=== PATIENT | female | born 1945 | race Caucasian/White ===

== ENCOUNTER 2020-04-21 11:44 | Outpatient (RCR) | payer MEDICARE, OTHER, SELFPAY | END 2020-05-06 23:59 | disposition home or self-care (01) | LOC: SPT 11:44 | PROVIDERS: PCP Family Medicine; Referring Provider Podiatrist; Visit Provider Podiatrist | DX: Z47.89 Encounter for other orthopedic aftercare (principal) | CPT/HCPCS: 97035; 97140; 97161; 97530 ==

== ENCOUNTER 2020-05-07 06:00 | Outpatient (RCR) | payer MEDICARE, OTHER, SELFPAY | END 2020-06-05 23:59 | disposition home or self-care (01) | LOC: SPT 06:00 | PROVIDERS: PCP Family Medicine; Referring Provider Podiatrist; Visit Provider Podiatrist | DX: Z47.89 Encounter for other orthopedic aftercare (principal) | CPT/HCPCS: 97035; 97140 ==

== ENCOUNTER 2020-06-07 06:00 | Outpatient (RCR) | payer MEDICARE, OTHER, SELFPAY | END 2020-07-06 23:59 | disposition home or self-care (01) | LOC: SPT 06:00 | PROVIDERS: PCP Family Medicine; Referring Provider Podiatrist; Visit Provider Podiatrist | DX: Z47.89 Encounter for other orthopedic aftercare (principal) | CPT/HCPCS: 97110; 97140; 97162; 97164 ==

== ENCOUNTER 2020-06-07 06:00 | Outpatient (RCR) | payer MEDICARE, SELFPAY | END 2020-07-06 23:59 | disposition home or self-care (01) | LOC: SPT 06:00 | PROVIDERS: PCP Family Medicine; Referring Provider Podiatrist; Visit Provider Podiatrist | DX: Z47.89 Encounter for other orthopedic aftercare (principal) | CPT/HCPCS: 97162 ==

== ENCOUNTER → 2020-06-07 15:03 | Outpatient (BNVA) | payer MEDICARE, SELFPAY | PROVIDERS: PCP Family Medicine; Visit Provider Nurse Practitioner | DX: R23.3 Spontaneous ecchymoses (principal) | CPT/HCPCS: 85025 ==

== ENCOUNTER 2020-07-07 06:00 | Outpatient (RCR) | payer MEDICARE, SELFPAY | END 2020-08-06 23:59 | disposition home or self-care (01) | LOC: SPT 06:00 | PROVIDERS: PCP Family Medicine; Referring Provider Podiatrist; Visit Provider Podiatrist | DX: Z47.89 Encounter for other orthopedic aftercare (principal) | CPT/HCPCS: 97110; 97140 ==

== ENCOUNTER → 2022-05-15 13:06 | Outpatient (BNVA) | payer MEDICARE, SELFPAY | PROVIDERS: PCP Family Medicine; Visit Provider Podiatrist Foot & Ankle Surgery | DX: M77.41 Metatarsalgia, right foot (principal); M21.621 Bunionette of right foot; M20.41 Other hammer toe(s) (acquired), right foot | CPT/HCPCS: 73630; 99204 ==

== ENCOUNTER → 2022-12-03 14:22 | Outpatient (BNVA) | payer MEDICARE, SELFPAY | PROVIDERS: PCP Family Medicine; Visit Provider Family Medicine | DX: M25.50 Pain in unspecified joint (principal); M79.10 Myalgia, unspecified site; E03.9 Hypothyroidism, unspecified; M19.90 Unspecified osteoarthritis, unspecified site | CPT/HCPCS: 80053; 85025; 85651; 86140; 86160; 86162; 86235; 86255; 86376 ==

== ENCOUNTER → 2023-02-21 08:19 | Outpatient (BNVA) | payer MEDICARE, SELFPAY | PROVIDERS: PCP Family Medicine; Visit Provider Family Medicine | DX: M25.50 Pain in unspecified joint (principal); M79.10 Myalgia, unspecified site; R53.83 Other fatigue; R76.8 Other specified abnormal immunological findings in serum; R79.89 Other specified abnormal findings of blood chemistry | CPT/HCPCS: 80053; 82088; 82533; 82672; 84144 ==

== ENCOUNTER → 2023-03-21 08:38 | Outpatient (BNVA) | payer MEDICARE, SELFPAY | PROVIDERS: PCP Family Medicine; Visit Provider Family Medicine | DX: B37.9 Candidiasis, unspecified (principal) | CPT/HCPCS: 87070 ==

== ENCOUNTER → 2023-07-17 10:13 | Outpatient (BNVA) | payer MEDICARE, SELFPAY | PROVIDERS: PCP Family Medicine; Visit Provider Family Medicine | DX: F41.9 Anxiety disorder, unspecified (principal); R76.8 Other specified abnormal immunological findings in serum; M25.50 Pain in unspecified joint; R06.00 Dyspnea, unspecified; E03.9 Hypothyroidism, unspecified; M19.90 Unspecified osteoarthritis, unspecified site | CPT/HCPCS: 80053; 85007; 85025; 85651; 86140 ==

== ENCOUNTER 2023-08-25 06:00 | Outpatient (RCR) | payer MEDICARE, SELFPAY | END 2023-09-04 23:59 | disposition home or self-care (01) | LOC: GPT 06:00 | PROVIDERS: PCP Family Medicine; Visit Provider Family Medicine | DX: M75.100 Unspecified rotator cuff tear or rupture of unspecified shoulder, not specified as traumatic (principal) | CPT/HCPCS: 97110; 97140; 97161; 97530 ==

== ENCOUNTER 2023-09-05 06:00 | Outpatient (RCR) | payer MEDICARE, SELFPAY | END 2023-10-05 23:59 | disposition home or self-care (01) | LOC: GPT 06:00 | PROVIDERS: PCP Family Medicine; Visit Provider Family Medicine | DX: M75.100 Unspecified rotator cuff tear or rupture of unspecified shoulder, not specified as traumatic (principal) | CPT/HCPCS: 97110; 97112; 97140; 97530 ==

== ENCOUNTER 2023-10-06 06:00 | Outpatient (RCR) | payer MEDICARE, SELFPAY | END 2023-11-04 23:59 | disposition home or self-care (01) | LOC: GPT 06:00 | PROVIDERS: PCP Family Medicine; Visit Provider Family Medicine | DX: M75.100 Unspecified rotator cuff tear or rupture of unspecified shoulder, not specified as traumatic (principal) | CPT/HCPCS: 97110; 97530 ==

== ENCOUNTER 2024-02-02 06:00 | Outpatient (RCR) | payer MEDICARE, SELFPAY | END 2024-02-04 23:59 | disposition home or self-care (01) | LOC: APT 06:00 | PROVIDERS: Visit Provider Orthopaedic Surgery | DX: Z47.89 Encounter for other orthopedic aftercare (principal) | CPT/HCPCS: 97140; 97161; 97530 ==

== ENCOUNTER 2024-02-05 06:00 | Outpatient (RCR) | payer MEDICARE, SELFPAY | END 2024-03-06 23:59 | disposition home or self-care (01) | LOC: APT 06:00 | PROVIDERS: Visit Provider Orthopaedic Surgery | DX: Z98.890 Other specified postprocedural states (principal) | CPT/HCPCS: 97110; 97140; 97530 ==

== ENCOUNTER 2024-03-07 06:30 | Outpatient (RCR) | payer MEDICARE, SELFPAY | END 2024-04-05 23:59 | disposition home or self-care (01) | LOC: APT 06:30 | PROVIDERS: Visit Provider Orthopaedic Surgery | DX: Z98.890 Other specified postprocedural states (principal) | CPT/HCPCS: 97110; 97112; 97530 ==

== ENCOUNTER 2024-04-06 06:00 | Outpatient (RCR) | payer MEDICARE, SELFPAY | END 2024-05-06 23:59 | disposition home or self-care (01) | LOC: APT 06:00 | PROVIDERS: Visit Provider Orthopaedic Surgery | DX: Z98.890 Other specified postprocedural states (principal) | CPT/HCPCS: 97110; 97112; 97530 ==

== ENCOUNTER 2024-05-07 06:00 | Outpatient (RCR) | payer MEDICARE, SELFPAY | END 2024-06-05 23:59 | disposition home or self-care (01) | LOC: APT 06:00 | PROVIDERS: Visit Provider Orthopaedic Surgery | DX: Z98.890 Other specified postprocedural states (principal) | CPT/HCPCS: 97110; 97530 ==

== ENCOUNTER 2025-02-10 14:57 | Emergency (ER) | payer MEDICARE, SELFPAY ==
[2025-02-10 15:02] VITALS: BP 181/83; PULSE 92; RESP 16; TEMP 36.6; O2SAT 92; BMI 38.2
--- OUTSIDE RECORDS SUMMARY | 2025-02-10 15:04 | XMS_ITS | Clinical Summary ---
Author Organization [facility] Neil flores Troup Address [address] [place] [address] Phone Care Team Providers Care Machine Container Washer Name Role Phone Stephie Ga TRASH MAN Primary Care Provider Allergies Active Allergy Reactions Criticality Noted Date Comments Oxycodone Hcl Anaphylaxis High 04/10/2012 Medications lisinopril (PRINIVIL) 10 mg Oral tablet Take 10 mg by mouth daily. Active levothyroxine (LEVOTHYROXINE) 100 mcg Oral tablet Take 100 mcg by mouth daily retail consultant. Active loratadine (CLARITIN) 10 mg Oral tablet Take 10 mg by mouth daily. Active PSEUDOEPHEDRINE HCL (SUDAFED ORAL) Take by mouth. Active famotidine (PEPCID) 20 mg Oral tablet Take 20 mg by mouth 2 times daily. Active Magnesium 250 mg Oral Tab Take by mouth. Active diphenhydrAMINE (BENADRYL) 25 mg Oral capsule Take 25 mg by mouth every 6 hours as needed. 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 Gender Identity Not on file Sexual Orientation Not on file Occupation Industry Job Start Date Job End Date Not on file Not on file Not on file Not on file Last Filed Vital Signs Vital Sign Reading Time Taken Comments Blood Pressure 100/68 12/03/2012 2:31 PM CDT Pulse 106 12/03/2012 2:31 PM CDT Temperature - - Respiratory Rate - - Oxygen Saturation 94% 12/03/2012 2:31 PM CDT Inhaled Oxygen Concentration - - Weight 91.2 kg (201 lb) 12/03/2012 2:31 PM CDT Height 157.5 cm (5' 2 ) 12/03/2012 2:31 PM CDT Body Mass Index 36.76 12/03/2012 2:31 PM CDT Plan of Treatment Health Maintenance Due Date Last Done Comments DTAP/TDAP/TD VACCINES (1 - Tdap) 1964 PNEUMOCOCCAL VACCINE 50+ YEARS (1 of 1 - PCV) 03/31/19 94 ZOSTER VACCINE (1 of 2) 1994 OSTEOPOROSIS SCREENING 2009 RSV VACCINE (60+ or ) (1 - 1-dose 75+ series) 2019 INFLUENZA VACCINE (#1) 2025 Insurance [facility] MEDICARE PART A AND B Care Teams Machine Container Washer Relationship Specialty Start Date End Date Stephie Ga NP PCP - General NURSE PRACTITIONER 04/10/12
--- OUTSIDE RECORDS SUMMARY | 2025-02-10 15:04 | XMS_ITS | Clinical Summary ---
Author Organization [employer] [facility] Address [address] [place] [address] Attn: Epic Prelude ADT CREOLAYINKA CARTAGENA [id number] Care Team Providers Care Swatcher Name Role Phone Stephie Ga RN TESTING Primary Care Provider Allergies Active Allergy Reactions Criticality Noted Date Comments Oxycodone Hcl Anaphylaxis High 04/10/2012 Active Problems Problem Noted Date Diagnosed Date Lung nodule 04/19/2012 Allergic rhinitis 04/19/2012 Psoriatic arthritis 04/19/2012 Hypothyroidism 04/19/2012 HTN (hypertension) 04/19/2012 GERD (gastroesophageal reflux disease) 2 Social History Tobacco Use Types Packs/Day Years Used Date Smoking Tobacco: Never Smokeless Tobacco: Never Alcohol Use Standard Drinks/Week Comments Not Asked 0 (1 standard drink = 0.6 oz pur e alcohol) Comments Unknown Sex and Gender Information Value Date Recorded Sex Assigned at Not on file 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
--- OUTSIDE RECORDS SUMMARY | 2025-02-10 15:04 | XMS_ITS | Clinical Summary ---
Author Organization [facility] Address [address] [place] [address] Phone Care Team Providers Care Metal Framer Name Role Phone Unavailable Primary Care Provider Unavailabl e Allergies Active Allergy Reactions Criticality Noted Date Comments Oxycodone Anaphylaxis,Shortness Of Breath High 11/2011 Medications levothyroxine (SYNTHROID) 100 MCG tablet Take one tablet (100 mcg total) by mouth daily in the morning Active lisinopriL (PRINIVIL) 40 MG tablet Take one tablet (40 mg total) by mouth one (1) time a day Active PREDNISONE ORAL 10-15 mg daily Active furosemide (LASIX) 20 MG tablet Take one tablet (20 mg total) by mouth as needed Active famotidine (PEPCID ORAL) Take by mouth as needed Active omeprazole magnesium (PRILOSEC ORAL) Take by mouth as needed Active fluconazole (DIFLUCAN) 100 MG tablet Take by mouth as needed Active ZINC PICOLINATE ORAL Take 15 mg by mouth one (1) time a day Active MAGNESIUM ORAL Take 250 mg by mouth one (1) time a day Active Active Problems Problem Noted Date Diagnosed Date Hypothyroidism (acquired) 05/19/2024 Fibromyalgia 05/19/2024 IBS (irritable bowel syndrome) 05/19/2024 Benign essential hypertension 10/17/2016 Overview (05/19/2024): Location: None Severity: Moderate Progress: Stable Added By: Deirdre Bergeron Add to Current Problems: YES GERD (gastroesophageal reflux disease) 2 Family History Medical History Relation Name Comments Lung cancer Father Heart failure Mother Lupus Mother Relation Name Status Comments Father Mother Social History Tobacco Use Types Packs/Day Years Used Date Smoking Tobacco: Never Tobacco Cessation:Counseling Given: Not Answered Alcohol Use Standard Drinks/Week Comments Not Currently 0 (1 standard drink = 0.6 oz pur e alcohol) Comments Unknown Sex and Gender Information Value Date Recorded Sex Assigned at Not on file Legal Sex Female 10:47 AM CDT Gender Identity Not on file Sexual Orientation Not on file Last Filed Vital Signs Vital Sign Reading Time Taken Comments Blood Pressure 148/90 05/19/2024 2:45 PM HOSE MAKER Pulse 116 05/19/2024 2:45 PM HOSE MAKER Temperature - - Respiratory Rate - - Oxygen Saturation 97% 05/19/2024 2:45 PM HOSE MAKER Inhaled Oxygen Concentration - - Weight 99.8 kg (220 lb) 05/19/2024 2:45 PM HOSE MAKER Height 157.5 cm (5' 2 ) 05/19/2024 2:45 PM HOSE MAKER Body Mass Index 40.24 05/19/2024 2:45 PM HOSE MAKER Plan of Treatment Health Maintenance Due Date Last Done Comments Annual Depression Screening 1955 Pneumococcal Vaccine Age 50+ (1 of 1 - PCV) 1994 Bone Density 2009 RSV Immunization Pa tients or 60+ Years (1 - 1-dose 75+ series) 2019 Welcome to Medicare (IPPE) G0402 07/07/2023 Medicare Initial AWV [id number] 07/07/2024 Influenza Vaccine 03/07/2025 Insurance [employer] MEDICARE [id number] Member Subscriber Plan / Payer (Ef fective 2023-Present) Name:Shelli Raza Relation to Subscriber:Self Name:Shelli Raza Payer ID:[id number] (NAIC) Type:Not on file Address: [facility] [id number] [place] [id number]
--- NOTE | 2025-02-10 15:16 | ECG_ITS ---
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 Measurements Intervals [place] Rate: 91 P: 60 NE: 153 QRS: 38 QRSD: 81 T: 66 QT: 343 QTc: 424 Interpretive Statements SINUS RHYTHM MINIMAL ST DEPRESSION [0.025+ mV ST DEPRESSION] No previous ECG available for comparison Electronically Signed On 02-11-2025 13:50:24 CDT by Nicole Grant M.D. [email or web address] [id number]
--- NOTE | 2025-02-10 15:16 | CT_ITS ---
WS: [id number] CT HEAD NONCONTRAST HISTORY: Symptoms of acute stroke TECHNIQUE: Contiguous axial imaging performed through the brain. Bone and soft tissue windows. Sagittal and coronal reformats reviewed. All CT scans at [facility] use at least one of these dose optimization techniques: automated exposure control; mA and/or kV adjustment per patient size (includes targeted exams where dose is matched to clinical indication); or iterative reconstruction. DLP: 1083.82 mGy COMPARISON: None available. No acute intracranial hemorrhage, midline shift or mass effect. Mild atrophy and small vessel changes. No prior infarct. Ventricles: Normal size with no hydrocephalus. No inferior displacement of cerebellar tonsils. Tiny amount of calcium in the anterior cerebral arteries. Paranasal sinuses: As visualized are clear. Mastoid air cells: Well pneumatized. Calvarium and scalp: Skull is intact with no soft tissue edema or swelling. CT/CT head thrombolytic [id number] IMPRESSION: 1. No acute intracranial hemorrhage or edema. 2. Very mild cerebral atrophy and small vessel disease. Notified Vandana Cordero MD at 02/10/2025 3:36 PM.
[2025-02-10 15:29] LABS: Hematocrit 45.4 % (36-47); Hemoglobin 14.30 g/dL (11.27-16.99); Mean Corpuscular HGB Conc 31.5 g/dL (30-55); Mean Corpuscular Hemoglobin 28.0 pg (27-33); Mean Corpuscular Volume 88.8 fl (85-98); Nucleated Red Blood Cells % 0 %; Platelet Count 317 10^3/cmm (157-399); Red Blood Count 5.11 10^6/uL (3.85-5.65); White Blood Count 8.34 10^3/uL (3.29-11.43)
--- NOTE | 2025-02-10 15:29 | W.ED.NEUROSD ---
HPI - Neuro Symptoms/Deficit General: Chief Complaint: Neuro Symptoms/Deficit Stated Complaint: right side numbness Time Seen by Provider: 02/10/25 15:27 History of Present Illness: 79-year-old female with a history of hypertension, obesity, anxiety and hypothyroidism who presents to the emergency room with neurologic symptoms. She was at ophthalmology clinic and was about to receive some numbing injections in her eye for procedure and had been given some lidocaine jelly on her eye and shortly after she developed numbness in the right side of her face. She was also quite hypertensive and became quite anxious. Concerned she might be having a stroke so she was sent to the emergency room. Currently she says the numbness/tingling is improving. She has no facial droop. No slurred speech. No focal motor deficits. No altered mental status. No chest pain. No abdominal pain. She is a bit hypertensive on presentation with a blood pressure of 180/80. Related Data Home Medications ?Medication ?Instructions ?Recorded ?Confirmed levothyroxine 100 mcg capsule 100 mcg PO DAILY 02/02/20 10/14/23 Previous Rx's ?Medication ?Instructions ?Recorded tramadol 50 mg tablet (Ultram) 50 mg PO Q12H pain 30 days #60 tabs 05/15/22 azithromycin 250 mg tablet See Rx Instructions PO .COMPLEX #6 10/10/22 tabs benzonatate 200 mg capsule 200 mg PO TID PRN cough #90 caps 10/10/22 prednisone 20 mg tablet See Rx Instructions PO BID #15 tabs 12/03/22 fluconazole 100 mg tablet 100 mg PO DAILY #30 tabs 02/21/23 (Diflucan) prednisone 10 mg tablet See Rx Instructions .Route 06/16/23 .COMPLEX #30 tabs prednisone 20 mg tablet 20 mg PO DAILY inflammation #10 07/17/23 tabs prednisone 20 mg tablet 20 mg PO DAILY inflammation #30 07/23/23 tabs amlodipine 10 mg tablet 10 mg PO DAILY bp #90 tabs 08/05/23 duloxetine 30 mg capsule,delayed 30 mg PO DAILY pain #30 caps 09/29/23 release hydralazine 50 mg tablet See Rx Instructions PO TID HTN #90 10/14/23 tabs lisinopril 20 mg tablet 20 mg PO BID #180 tabs 08/10/24 aspirin 325 mg tablet 325 mg PO DAILY #30 tabs 02/10/25 Allergies Allergy/AdvReac Type Severity Reaction Status Date / Time oxycodone (From OxyContin) Allergy ALGY-Difficulty Verified 02/10/25 15:13 Breathing hydrochlorothiazide AdvReac rash Verified 02/10/25 15:13 Review of Systems Narrative: Constitutional symptoms: Negative except as documented in HPI. Skin symptoms: Negative except as documented in HPI. Eye symptoms: Negative except as documented in HPI. ENMT symptoms: Negative except as documented in HPI. Respiratory symptoms: Negative except as documented in HPI. Cardiovascular symptoms: Negative except as documented in HPI. Gastrointestinal symptoms: Negative except as documented in HPI. Genitourinary symptoms: Negative except as documented in HPI. Musculoskeletal symptoms: Negative except as documented in HPI. Neurologic symptoms: Negative except as documented in HPI. Psychiatric symptoms: Negative except as documented in HPI. Endocrine symptoms: Negative except as documented in HPI. PFS ED PFSH: Medical History (Updated 02/10/25 @ 16:21 by Vandana Cordero MD) Anxiety Essential hypertension Asthma Hypothyroidism Social History Smoking and tobacco/nicotine status: never used tobacco/nicotine Second hand smoke exposure: No Alcohol intake: never Substance/Drug Use: never Lives independently: Yes Household members: spouse Housing: House Marital status: Physical Exam Narrative: EXAM NARRATIVE: General: Alert, no acute distress. Skin: Warm, dry. Head: Normocephalic, atraumatic. Neck: Supple, trachea midline. Eye: Extraocular movements are intact. Ears, nose, mouth and throat: mucosa moist. Cardiovascular: Regular, Normal peripheral perfusion. Respiratory: Lungs are clear to auscultation, respirations are non-labored, breath sounds are equal, Symmetrical chest wall expansion. Gastrointestinal: Soft, Nontender, Non distended Musculoskeletal: Normal ROM, no deformity. Neurological: Alert and oriented, No focal neurological deficit observed. No facial droop. Smile is normal. Vision is normal. No slurred speech. Psychiatric: Cooperative, appropriate mood & affect. Course Vital Signs: Vital signs: Vital Signs Temperature 97.9 F 02/10/25 15:02 Pulse Rate 83 02/10/25 15:58 Respiratory Rate 20 H 02/10/25 15:58 Blood Pressure 154/92 02/10/25 15:58 Pulse Oximetry 90 02/10/25 15:58 Oxygen Delivery Me thod Room Air 02/10/25 15:02 MDM - Neuro Symptoms/Deficit Medical Decision Making Medical decision making: Differential diagnosis for patient with focal neurologic deficit(s) includes but not limited to and based on the above HPI, review of systems and physical exam: ischemic stroke, hemorrhagic stroke and embolic stroke secondary to atrial fibrillation), TIA, Wilkins's palsey, metabolic encephalopathy with previous stroke. Orders placed to evaluate differential diagnosis based on the above differential, HPI and physical exam NIH Stroke Scale/Score (NIHSS) from [employer] on 02/10/2025 * All calculations should be rechecked by clinician prior to use RESULT SUMMARY: 1 points NIH Stroke Scale INPUTS: 1A: Level of consciousness ?> 0 = Alert; keenly responsive 1B: Ask month and age ?> 0 = Both questions right 1C: 'Blink eyes' & 'squeeze hands' ?> 0 = Performs both tasks 2: Horizontal extraocular movements ?> 0 = Normal 3: Visual gutierrez ?> 0 = No visual loss 4: Facial palsy ?> 0 = Normal symmetry 5A: Left arm motor drift ?> 0 = No drift for 10 seconds 5B: Right arm motor drift ?> 0 = No drift for 10 seconds 6A: Left leg motor drift ?> 0 = No drift for 5 seconds 6B: Right leg motor drift ?> 0 = No drift for 5 seconds 7: Limb Ataxia ?> 0 = No ataxia 8: Sensation ?> 1 = Mild-moderate loss: less sharp/more dull 9: Language/aphasia ?> 0 = Normal; no aphasia 10: Dysarthria ?> 0 = Normal 11: Extinction/inattention ?> 0 = No abnormality Consultation: I spoke with Dr. Cota upon patient's arrival. He agrees this patient would not qualify for TNKase. Lab Review: Laboratory results were reviewed and interpreted by myself the emergency room physician. No leukocytosis. No anemia. No renal failure. Urinalysis is negative. I reviewed the patient's medical record. Reexamination: Patient remained stable. No increased work of breathing. No altered mental status. No focal motor deficits. Patient says numbness has almost completely resolved at this time. Blood pressures improved spontaneously. Consultation: I spoke with Dr. Brown and he still does not think that this was related to the lidocaine jelly. Perhaps she had a anxiety reaction. She was quite hypertensive and this is improved and she seems much calmer now and symptoms have improved as well. Assessment and plan: Paresthesia Hypertension ?I am going to have her take an aspirin daily and follow-up with her PCP MILY - Discharged home - Discussed plan with patient. Answered any questions. - Evaluation and treatment of this problem were appropriate in the emergency setting. Lab Data 02/10/25 15:21 02/10/25 15:[address] 02/10/25 15:16 IMPRESSION: 1. No acute intracranial hemorrhage or edema. 2. Very mild cerebral atrophy and small vessel disease. Notified Vandana Cordero MD at 02/10/2025 3:36 PM. Laboratory Results WBC 8.34 10^3/uL (3.29-11.43) 02/10/25 15:21 RBC 5.11 10^6/uL (3.85-5.65) 02/10/25 15:21 Hgb 14.30 g/dL (11.27-16.99) 02/10/25 15:21 Hct 45.4 % (36-47) 02/10/25 15:21 MCV 88.8 fl (85-98) 02/10/25 15:21 MCH 28.0 pg (27-33) 02/10/25 15:21 MCHC 31.5 g/dL (30-55) 02/10/25 15:21 RDW 14.4 % (12.1-15.1) 02/10/25 15:21 Plt Count 317 10^3/cmm (157-399) 02/10/25 15:21 MPV 9.7 fL (7.4-10.4) 02/10/25 15:21 Neut % (Auto) 83.0 % 02/10/25 15:21 Lymph % (Auto) 13.5 % 02/10/25 15:21 Webster % (Auto) 1.8 % 02/10/25 15:21 Eos % (Auto) 0.1 % 02/10/25 15:21 Baso % (Auto) 0.8 % 02/10/25 15:21 Neut # (Auto) 6.91 10^3/uL (1.8-7.7) 02/10/25 15:21 Lymph # (Auto) 1.1 10^3/uL (0.8-4.8) 02/10/25 15:21 Webster # (Auto) 0.2 10^3/uL (0.2-0.9) 02/10/25 15:21 Eos # (Auto) 0.0 10^3/uL (0.0-0.8) 02/10/25 15:21 Baso # (Auto) 0.1 10^3/uL (0.0-0.1) 02/10/25 15:21 Nucleated RBC % (auto) 0 % 02/10/25 15:21 Nucleated RBCs # 0.0 /100WBC 02/10/25 15:21 PT 12.20 SECONDS (12.1-14.9) 02/10/25 15:21 INR 0.84 (0.8-1.2) 02/10/25 15:21 APTT 26.6 SECONDS (23.9-36.7) 02/10/25 15:21 Sodium 140 mmol/L (136-145) 02/10/25 15:21 Potassium 4.6 mmol/L (3.5-5.1) 02/10/25 15:21 Chloride 103 mmol/L (98-107) 02/10/25 15:21 Carbon Dioxide 25 mmol/L (22-29) 02/10/25 15:21 Anion Gap 16.6 (5-19) 02/10/25 15:21 BUN 13 mg/dL (8-23) 02/10/25 15:21 Creatinine 0.9 mg/dL (0.5-0.9) 02/10/25 15:21 GFR Calculation Not Reportable 02/10/25 15:21 Glucose 111 mg/dL (65-115) 02/10/25 15:21 POC Glucose 107 mg/dL (70-110) 02/10/25 15:06 Calculated Osmolality 291 mOsm/kg (285-295) 02/10/25 15:21 Calcium 9.6 mg/dL (8.5-10.5) 02/10/25 15:21 Total Bilirubin 0.6 mg/dL (0.15-1.2) 02/10/25 15:21 AST 21 U/L (0-32) 02/10/25 15:21 ALT 23 U/L (0-33) 02/10/25 15:21 Alkaline Phosphatase 88 U/L (35-105) 02/10/25 15:21 Total Protein 7.4 g/dL (6.6-8.7) 02/10/25 15:21 Albumin 4.4 g/dL (3.5-5.2) 02/10/25 15:21 Globulin 3.0 g/dL (1.3-4.6) 02/10/25 15:21 Urine Color Yellow (Yellow) 02/10/25 15:50 Urine Appearance Cloudy (CLEAR) A 02/10/25 15:50 Urine pH 8.0 (5-7) A 02/10/25 15:50 Ur Specific Temple 1.016 (1.005-1.030) 02/10/25 15:50 Urine Protein Negative (Negative) 02/10/25 15:50 Urine Glucose (UA) Negative (Normal) 02/10/25 15:50 Urine Ketones Trace (Negative) 02/10/25 15:50 Urine Blood Negative (Negative) 02/10/25 15:50 Urine Nitrate Negative (Negative) 02/10/25 15:50 Urine Bilirubin Negative (Negative) 02/10/25 15:50 Urine Urobilinogen 1.0 mg/dL (Negative) 02/10/25 15:50 Ur Leukocyte Esterase Negative (Negative) 02/10/25 15:50 Urine RBC 0-2 /hpf (0-2) 02/10/25 15:50 Urine WBC 0-5 /hpf (0-5) 02/10/25 15:50 Ur Squamous Epith Cells 0-5 /hpf (0-5) 02/10/25 15:50 Amorphous Sediment Not Reportable 02/10/25 15:50 Urine Bacteria None seen /hpf (NONE) 02/10/25 15:50 Hyaline Casts 0-4 /lpf H 02/10/25 15:50 Urine Opiates Screen Negative ng/mL (Negative) 02/10/25 15:50 Ur Barbiturates Screen Negative ng/mL (Negative) 02/10/25 15:50 Ur Phencyclidine Scrn Negative ng/mL (Negative) 02/10/25 15:50 Ur Amphetamines Screen Negative ng/mL (Negative) 02/10/25 15:50 U Benzodiazepines Scrn Negative ng/mL (Negative) 02/10/25 15:50 Urine Cocaine Screen Negative ng/mL (Negative) 02/10/25 15:50 U Marijuana (THC) Screen Negative ng/mL (Negative) 02/10/25 15:50 All radiology interpretation(s) finalized by discharge Discharge Plan Discharge Patient Disposition: Home Clinical Impression: Paresthesia, Hypertension Condition: Stable Prescriptions: New aspirin 325 mg tablet 325 mg PO DAILY Qty: 30 0RF No Action levothyroxine 100 mcg capsule 100 mcg PO DAILY azithromycin 250 mg tablet See Rx Instructions PO .COMPLEX Qty: 6 0RF Rx Instructions: For 250 mg dose pack: take 500 mg today (day 1), then 250 mg for 4 days (days 2-5) PO benzonatate 200 mg capsule 200 mg PO TID PRN (Reason: cough) Qty: 90 2RF fluconazole [Diflucan] 100 mg tablet 100 mg PO DAILY Qty: 30 2RF Rx Instructions: take one tab po qday x 3 then prn prednisone 20 mg tablet 20 mg PO DAILY Qty: 10 0RF tramadol [Ultram] 50 mg tablet 50 mg PO Q12H 30 Days Qty: 60 0RF prednisone 20 mg tablet See Rx Instructions PO BID Qty: 15 0RF Rx Instructions: 2 po day x 5 days, then 1 po qday x 5 days. then stop. amlodipine 10 mg tablet 10 mg PO DAILY Qty: 90 1RF duloxetine 30 mg capsule,delayed release(DR/EC) 30 mg PO DAILY Qty: 30 1RF hydralazine 50 mg tablet See Rx Instructions PO TID Qty: 90 0RF Rx Instructions: 1 po bid prn for systolic >150 or diastolic >90 orally three times daily; prednisone 10 mg tablet See Rx Instructions .ROUTE .COMPLEX Qty: 30 1RF Dose Instruction: TAKE ONE TABLET BY MOUTH DAILY Rx Instructions: TAKE ONE TABLET BY MOUTH DAILY prednisone 20 mg tablet 20 mg PO DAILY Qty: 30 0RF lisinopril 20 mg tablet 20 mg PO BID Qty: 180 3RF Discharge Orders: Discharge ED (Routine); Ordered 02/10/25 Ordered By: Vandana Cordero Referrals: Sudhakar Toussaint MD [Primary Care Provider, Family Practice] Discharge Diet: Usual diet Discharge Activity: Increase activity as tolerated Patient Instructions: Paresthesia (ED), Hypertension (ED), Opioid Safety, Pain Management, Patient Portal & Mari Instructions Activity Restrictions/Additional Instructions: Please take a full-strength aspirin daily until you follow-up with your PCP. Have them look at what was done here and decide how to continue forward. [facility]. You have been screened and evaluated and felt safe for discharge. Health conditions do change or evolve sometimes and as such it is important that you follow up with your Primary Doctor to be re checked, 3-5 days is a general good time frame for follow up. You are always welcome to return to the ED for re assessment if your symptoms are worsening or you have new concerns Print Language: Italian Coding Level of Care Code ED Woods Superintendent for Jagdeep Bruce
[2025-02-10 15:43] VITALS: BP 164/92; PULSE 83; O2SAT 92
[2025-02-10 15:45] LABS: INR 0.84 (0.8-1.2); Prothrombin Time 12.20 SECONDS (12.1-14.9)
[2025-02-10 15:46] LABS: Partial Thromboplastin Time 26.6 SECONDS (23.9-36.7)
[2025-02-10 15:50] LABS: Alanine Aminotransferase 23 U/L (0-33); Albumin Level 4.4 g/dL (3.5-5.2); Alkaline Phosphatase 88 U/L (35-105); Aspartate Amino Transferase 21 U/L (0-32); Blood Urea Nitrogen 13 mg/dL (8-23); Calcium 9.6 mg/dL (8.5-10.5); Carbon Dioxide 25 mmol/L (22-29); Chloride 103 mmol/L (98-107); Creatinine Clr Calc Pharmacy 53.4744; Globulin 3.0 g/dL (1.3-4.6); Glucose 111 mg/dL (65-115); Osmolality Calculated 291 mOsm/kg (285-295); Sodium 140 mmol/L (136-145); Total Protein 7.4 g/dL (6.6-8.7)
[2025-02-10 15:58] VITALS: BP 154/92; PULSE 83; RESP 20; O2SAT 90
[2025-02-10 16:08] LABS: Glucose Urine UA Negative (Normal); Nitrate Urine Negative (Negative); Specific Gravity, Urine 1.016 (1.005-1.030)
[2025-02-10 16:09] LABS: Anion Gap 16.6 (5-19); Potassium 4.6 mmol/L (3.5-5.1)
[2025-02-10 16:13] LABS: Add Urine Microscopic? YES
[2025-02-10 16:18] LABS: PCP Screen Urine Negative (Negative)
[2025-02-10 16:56] VITALS: BP 154/75; PULSE 82; O2SAT 91
== END 2025-02-10 16:57 | disposition home or self-care (01) ==
PROVIDERS: Emergency Provider Emergency Medicine; PCP Family Medicine
DX: R20.2 Paresthesia of skin (principal); I10 Essential (primary) hypertension
CPT/HCPCS: 36415; 36416; 70450; 80053; 80306; 81001; 82962; 85025; 85610; 85730; 93005; 99284

== ENCOUNTER 2025-03-22 13:54 | Outpatient (CLI) | payer MEDICARE, SELFPAY ==
--- NOTE | 2025-03-22 13:59 | XR_ITS ---
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 FINDINGS: The L1-L4 bone mineral density measures 0.847 g/cm2. This corresponds to a T score score of -2.8 and Z score of -1.9. Left femoral neck bone mineral density measures 0.835 g/cm2. This corresponds to a T score of -1.4 and Z score of 0.0. Right femoral neck bone mineral density measures 0.823 g/cm2. This corresponds to a T score -1.5of and Z score of -0.1. Mean femoral neck bone mineral density measures 0.829 g/cm2. This corresponds to a T score of -1.4 and Z score of 0.0. XR/XR DEXA axial skeleton* [id number] IMPRESSION: Osteoporosis lumbar spine. Osteopenia femoral necks. Patient's FRAX calculated 10 year probability for major osteoporotic fracture i s 31.6% and osteoporotic hip fracture is 10.5%.
== END 2025-03-22 13:55 | disposition home or self-care (01) ==
LOC: RAD 13:54
PROVIDERS: PCP Family Medicine; Visit Provider Family Medicine
DX: M81.0 Age-related osteoporosis without current pathological fracture (principal); M85.88 Other specified disorders of bone density and structure, other site
CPT/HCPCS: 77080

== ENCOUNTER 2025-05-01 15:49 | Emergency (ER) | payer MEDICARE, SELFPAY ==
--- NOTE | 2025-05-01 15:52 | XRR_ITS ---
PROCEDURE INFORMATION: Exam: XR Chest Exam date and time: 05/01/2025 4:19 PM Age: 80 years old Clinical indication: Cough; Prior surgery; Surgery date: 6+ months; Surgery type: Left shoulder TECHNIQUE: Imaging protocol: Radiologic exam of the chest. Views: 1 view. COMPARISON: CR XR ribs LT mn 3V w CXR1V [id number] 03/25/2025 9:19 AM FINDINGS: Lungs: No consolidation. Pleural spaces: No pleural effusion. No pneumothorax. Heart/Mediastinum: No cardiomegaly. Calcified mediastinal lymph nodes. Bones/joints: No acute findings. XR/XR chest 1V portable [id number] IMPRESSION: No acute airspace disease.
[2025-05-01 15:55] VITALS: BP 173/95; PULSE 90; RESP 18; TEMP 36.9; O2SAT 94
--- OUTSIDE RECORDS SUMMARY | 2025-05-01 15:55 | XMS_ITS | Data Portability ---
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 Studies ordered as below. Discussed plan with patient, who expressed understanding. Follow up as noted below. [email or web address] Not available 05/11/2018 12:40:26 08/12/2023 08/12/2023 Diana Marques is a [age] year old female referred to evaluate Arthralgias, myalgias in the context of ANGELA positive by PCP Dr. Aubrey William ([facility]) Autoimmune Serologies: 12/03/2022 (referral record 04/11/2023) Centromere B negative [employer] negative ANGELA 1: 40, nuclear homogenous dsDNA crithidia negative C3 157 C4 35 Trejo negative SSA negative SCL 70 negative TPO negative Polly 1 negative SSB negative # ANGELA is technically negative for entry criteria for SLE (must be higher than 1:80); ANGELA 1:40 and full min negative MARK with normal complements combined with no features of systemic rheumatic process. 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 We discussed the concepts of allodynia and hyperalgesia. We discussed that this is not an autoimmune condition which would not respond to immunosuppression. Physical activity, sleep hygiene and lifestyle are the primary treatment for fibromyalgia #HTN episode; notably during URI sxs could have been taking cold medicine at the same time. patient would like this worked up feeling it could be a hormonal problem; reports adrenal incidentaloma. - Metanephrine and catecholamine screen as below; discussed low pre-test probability I spent a total of 60 minutes reviewing records, obtaining history, performing physical exam, face to face education with patient and documentation of visit today. Addendum Please let patient and PCP know that catecholamine and metanephrine screen (for her adrenal tumor) was normal. No features of RA (CCP negative) [email or web address] Not available 08/17/2023 19:39:38 Plan of Treatment Reminders Order Date Submit Date Provider Last Modified By Organization Details Last Modified Time Details Appointments None recorded. Lab CBC w/ diff 2023 024 [facility] ([facility]), [address] [place], [address], 4 09:05:20 CMP, serum or plasma 2023 024 [facility] (All Lab Orders), [address] [place], [address], 4 09:05:20 vitamin D, 25-hydroxy , total, serum 2023 024 [facility] (All Lab Orders), [address] [place], [address], 4 09:05:20 TSH, serum or plasma 2023 024 [facility] (All Lab Orders), [address] [place], [address], 4 09:05:21 thyroid peroxidase (tpo) Ab, serum 2023 024 [email or web address] [address] [place], [address], 4 09:05:21 thyroglobu leo Ab, serum [address] [facility] (All Lab Orders), [address] [place], [address], 4 09:05:21 rf (rheumatoi d factor), serum [address] [facility] (All Lab Orders), [address] [place], [address], 4 08:59:35 ccp (cyclic citrullina dasha peptide) igg, serum [address] [facility] (All Lab Orders), [address] [place], [address], 4 08:59:35 catecholam supa panel, QN, plasma [address] [facility] (All Lab Orders), [address] [place], [address], 4 08:59:34 catecholam supa, urine [address] [facility] (All Lab Orders), [address] [place], [address], 4 08:59:34 metanephri era, fractionat ed, free, plasma [address] [facility] (All Lab Orders), [address] [place], [address], 4 08:59:35 metanephri ne, fractionat ed, urine [address] [facility] (All Lab Orders), [address] [place], [address], 4 08:59:35 urinalysis , dipstick [address] [facility], [address] [place], [address], 8 08:54:34 CMP, serum or plasma 2017 [facility], [id number] [place] [address], [address], 8 09:53:04 CBC w/ auto diff 2017 jules [facility], [address] [place], [address], 8 15:59:28 TSH + free T4, serum 2017 [facility], [address] [place], [address], 09:53:11 T3, free, serum or plasma 2017 [facility], [address] [place], [address], 09:53:08 Referral None recorded. Procedures None recorded. Surgeries None recorded. Imaging None recorded. Medication Orders None recorded. Patient TargetsNo targets recorded. Patient Instructions Encounter Date Encounter Id Patient Instructions Last Modified By Organization Details Last Modified Time 05/11/2018 [id number] pulmonary function test* [email or web address] Not available 05/11/2018 15:59:28 Discssed going t o LR for a second opinion on her right foot and toe pain. Discussed her thyroid and redrawing her levels today [email or web address] Not available 05/11/2018 12:42:58 05/13/2018 [id number] RTC as needed. [email or web address] Not availab le 05/14/2018 09:08:06 Offered ENT referral, scheduling of a bronchoscopy, she has appt. with pulmonology. A psychiatric evaluation may be of benefit. She was upset that she was not being treated for a specific malady today, but I told her I found no abnormalities that needed treatment . I spent 30 minutes attempting to console patient. [email or web address] Not available 05/14/2018 09:08:53 08/12/2023 [id number] medical record request* [email or web address] Not available 08/27/2023 14:41:39 Reason for Referral None Reported. Results Created Date Observation Date Name Description Value Unit Range Abnormal Flag Note LastModifiedBy Organization Detail LastModifiedTime 05/12/20 18 05/12/2018 CMP, serum or plasm a glucose 90 mg/dL 65-99 normal Fasti ng refer ence inter [place] Not Available [facility] [place] [address] [address] [place], [address], 05/12/2018 09:53:04 05/12/20 18 05/12/2018 CMP, serum or plasm a urea nitrogen (BUN) 14 mg/dL 7-25 normal Not Available [facility] [place] [address] [place], [address], 05/12/2018 09:53:04 05/12/20 18 05/12/2018 CMP, serum or plasm a creatinine 0.75 mg/dL 0.60-0 .93 normal For patie nts >49 years of age, the refer ence limit for Creat inine is appro ximat adam 13% highe r for peopl e ident ified as Afric an-Am michael n. Not Available [facility] [place] [address] [address] [place], [address], 05/12/2018 09:53:04 05/12/20 18 05/12/2018 CMP, serum or plasm a eGFR non-afr. vietnamese 79 mL/mi n/1.7 3m2 > or = 60 normal Not Available [facility] [place] [address] [place], [address], 05/12/2018 09:53:04 05/12/20 18 05/12/2018 CMP, serum or plasm a eGFR 91 mL/mi n/1.7 3m2 > or = 60 normal Not Available [facility] [place] [address] [place], [address], 05/12/2018 09:53:04 05/12/20 18 05/12/2018 CMP, serum or plasm a BUN/creatini ne ratio NOT APPLIC ABLE (calc ) 6-22 Not Available [address], [address], 05/12/2018 09:53:04 05/12/20 18 05/12/2018 CMP, serum or plasm a sodium 141 mmol/ L 135-14 6 normal Not Available [address], [address], 05/12/2018 09:53:04 05/12/20 18 05/12/2018 CMP, serum or plasm a potassium 4.3 mmol/ L 3.5-5. 3 normal Not Available [address], [address], 05/12/2018 09:53:04 05/12/20 18 05/12/2018 CMP, serum or plasm a chloride 103 mmol/ L 98-110 normal Not Available [address], [address], 05/12/2018 09:53:04 05/12/20 18 05/12/2018 CMP, serum or plasm a carbon dioxide 25 mmol/ L 20-32 normal Not Available [address], [address], 05/12/2018 09:53:04 05/12/20 18 05/12/2018 CMP, serum or plasm a calcium 9.8 mg/dL 8.6-10 .4 normal Not Available [facility] [address], [address], 05/12/2018 09:53:04 05/12/20 18 05/12/2018 CMP, serum or plasm a protein, total 7.4 g/dL 6.1-8. 1 normal Not Available [facility] [address], [address], 05/12/2018 09:53:04 05/12/20 18 05/12/2018 CMP, serum or plasm a albumin 4.7 g/dL 3.6-5. 1 normal Not Available [address], [address], 05/12/2018 09:53:04 05/12/20 18 05/12/2018 CMP, serum or plasm a globulin 2.7 g/dL_ (calc ) 1.9-3. 7 normal Not Available [address], [address], 05/12/2018 09:53:04 05/12/20 18 05/12/2018 CMP, serum or plasm a albumin/glob ulin ratio 1.7 (calc ) 1.0-2. 5 normal Not Available [address], [address], 05/12/2018 09:53:04 05/12/20 18 05/12/2018 CMP, serum or plasm a bilirubin, total 0.7 mg/dL 0.2-1. 2 normal Not Available [address], [address], 05/12/2018 09:53:04 05/12/20 18 05/12/2018 CMP, serum or plasm a alkaline phosphatase 73 U/L 33-130 normal Not Available [facility] [employer] [address], [address], 05/12/2018 09:53:04 05/12/20 18 05/12/2018 CMP, serum or plasm a AST 21 U/L 10-35 normal Not Available [address], [address], 05/12/2018 09:53:04 05/12/20 18 05/12/2018 CMP, serum or plasm a ALT 24 U/L 6-29 normal Not Available [address], [address], 05/12/2018 09:53:04 05/12/20 18 05/12/2018 T3, free, serum or plasm a T3, free 3.1 pg/mL 2.3-4. 2 normal Not Available [facility] [address] [place], [place] [address], [place], [address], 05/12/2018 09:53:08 05/12/20 18 05/12/2018 TSH + free T4, serum TSH 1.45 mIU/L 0.40-4 .50 normal Not Available [address] [address] [place], [address], 05/12/2018 09:53:11 05/12/20 18 05/12/2018 TSH + free T4, serum T4, free 1.6 NG/dL 0.8-1. 8 normal NO COLLE CTION DATE RECEI ALMA. WE HAVE USED THE DATE THE SPECI MEN WAS RECEI ALMA BY THIS LABOR ATORY THE COLLE CTION DATE. IF THIS IS INCOR RECT, PLEAS E CONTA CT CLIEN T SERVI EMERY. PHONE NUMBE R: [phone] Not Available [address], [address], 05/12/2018 09:53:11 05/11/20 18 05/11/2018 CBC w/ auto diff blood leukocytes automated count (number/volu me) 5.9 10*3/ uL 4.5-[address] [facility] [address] [place], [address], 05/11/2018 14:21:52 05/11/20 18 05/11/2018 CBC w/ auto diff blood erythrocytes automated count (number/volu me) 4.75 10*6/ uL 4.2-5. [address] [facility] [address] [place], [address], 05/11/2018 14:21:52 05/11/20 18 05/11/2018 CBC w/ auto diff blood hemoglobin measurement (mass/volume ) 14.4 g/dL 12.0-[address] [facility] [address] [place], [address], 05/11/2018 14:21:52 05/11/20 18 05/11/2018 CBC w/ auto diff HCT vfr bld auto 41.8 % 36.0-[address] [facility] [address] [place], [address], 05/11/2018 14:21:52 05/11/20 18 05/11/2018 CBC w/ auto diff automated erythrocyte mean corpuscular volume 88.1 fL 80-100 Not Available [address], [address], 05/11/2018 14:21:52 05/11/20 18 05/11/2018 CBC w/ auto diff automated erythrocyte mean corpuscular hemoglobin (mass per erythrocyte) 30.3 pg 27-32 Not Available [address] [place], [address], 05/11/2018 14:21:52 05/11/20 18 05/11/2018 CBC w/ auto diff automated erythrocyte mean corpuscular hemoglobin concentratio n measurement (mass/vol 34.4 g/dL 31.0-3 7.0 Not Available [address], [address], 05/11/2018 14:21:52 05/11/20 18 05/11/2018 CBC w/ auto diff automated erythrocyte distribution width ratio 14.7 % 12-14. 5 high Not Available [address] [place], [address], 05/11/2018 14:21:52 05/11/20 18 05/11/2018 CBC w/ auto diff automated blood platelet count (count/volum e) 464 10*3/ uL 150-45 0 high Not Available [address], [address], 05/11/2018 14:21:52 05/11/20 18 05/11/2018 CBC w/ auto diff automated blood platelet mean volume 10.0 fL 7.4-10 .4 Not Available [address] [place], [address], 05/11/2018 14:21:52 05/11/20 18 05/11/2018 CBC w/ auto diff automated blood granulocytes /100 leukocytes 64.9 % 40-70 Not Available [address], [address], 05/11/2018 14:21:52 05/11/20 18 05/11/2018 CBC w/ auto diff blood lymphocytes/ 100 leukocytes by flow cytometry 27.6 % 20-44 Not Available [address], [address], 05/11/2018 14:21:52 05/11/20 18 05/11/2018 CBC w/ auto diff automated blood monocytes/10 0 leukocytes 7.5 % 2-9 Not Available [address] [place], [address], 05/11/2018 14:21:52 05/11/20 18 05/11/2018 CBC w/ auto diff granulocytes # bld auto 3.80 10*3/ uL 1.8-7. 7 Not Available [address], [address], 05/11/2018 14:21:52 05/11/20 18 05/11/2018 CBC w/ auto diff blood lymphocytes automated count (number/volu me) 1.60 10*3/ uL 0.9-4. 8 Not Available [address], [address], 05/11/2018 14:21:52 05/11/20 18 05/11/2018 CBC w/ auto diff blood monocytes automated count (number/volu me) 0.4 10*3/ uL 0-0.8 Not Available [address] [place], [address], 05/11/2018 14:21:52 05/11/20 18 05/11/2018 urina lysis , compl ete color of urine by auto YELLOW Not Available [address], [address], 05/11/2018 14:59:25 05/11/20 18 05/11/2018 urina lysis , compl ete urine clarity by refractometr y automated CLEAR Not Available [address], [address], 05/11/2018 14:59:25 05/11/20 18 05/11/2018 urina lysis , compl ete urine glucose detection NEGATI VE negati ve Not Available [address], [address], 05/11/2018 14:59:25 05/11/20 18 05/11/2018 urina lysis , compl ete urine bilirubin detection NEGATI VE negati ve Not Available [address], [address], 05/11/2018 14:59:25 05/11/20 18 05/11/2018 urina lysis , compl ete urine ketones detection by automated test strip NEGATI VE negati ve Not Available [address], [address], 05/11/2018 14:59:25 05/11/20 18 05/11/2018 urina lysis , compl ete specific gravity of urine by automated test strip 1.010 1.001- 1.030 Not Available [address], [address], 05/11/2018 14:59:25 05/11/20 18 05/11/2018 urina lysis , compl ete urine erythrocytes detection by automated method NEGATI VE negati ve Not Available [address], [address], 05/11/2018 14:59:25 05/11/20 18 05/11/2018 urina lysis , compl ete urine pH measurement by automated test strip 8.0 5.0-8. [address] [facility] [address] [place], [address], 05/11/2018 14:59:25 05/11/20 18 05/11/2018 urina lysis , compl ete urine protein detection Negati ve negati ve Not Available [facility] [address] [place], [address], 05/11/2018 14:59:25 05/11/20 18 05/11/2018 urina lysis , compl ete urine urobilinogen measurement by automated test strip (mass/volume ) NORMAL 0.2-1 mg/dL Not Available [address], [address], 05/11/2018 14:59:25 05/11/20 18 05/11/2018 urina lysis , compl ete urine nitrite detection NEGATI VE negati ve Not Available [facility] [address] [place], [address], 05/11/2018 14:59:25 05/11/20 18 05/11/2018 urina lysis , compl ete urine leukocyte esterase detection by automated test strip NEGATI VE negati ve Not Available [facility] [address] [place], [address], 05/11/2018 14:59:25 05/14/20 18 05/14/2018 pulmo nary funct ion test* pre fev1 Not Available [facility] [address], [address], 05/11/2018 12:47:17 05/14/20 18 05/14/2018 pulmo nary funct ion test* post fev1 Not Available [facility] [address], [address], 05/11/2018 12:47:17 05/14/20 18 05/14/2018 pulmo nary funct ion test* fev1 Not Available [facility] [address], [address], 05/11/2018 12:47:17 05/14/20 18 05/14/2018 pulmo nary funct ion test* pre fef Not Available [facility] [address], [address], 05/11/2018 12:47:17 05/14/20 18 05/14/2018 pulmo nary funct ion test* post fef Not Available [facility] [address], [address], 05/11/2018 12:47:17 05/14/20 18 05/14/2018 pulmo nary funct ion test* fef Not Available [facility] [address], [address], 05/11/2018 12:47:17 08/12/19 24 08/12/2023 CBC W AUTO DIFFE RENTI AL PANEL - BLOOD leukocytes [#/volume] in blood by automated count 9.7 10*3/ uL 4.5-11 .0 1054, 08/12 Not Available [facility] ([facility]) [address] [place], [address], 08/12/2023 11:54:37 08/12/19 24 08/12/2023 CBC W AUTO DIFFE RENTI AL PANEL - BLOOD erythrocytes [#/volume] in blood by automated count 5.06 10*6/ uL 4.2-5. 4 Not Available [facility] ([facility]) [address] [place], [address], 08/12/2023 11:54:37 08/12/19 24 08/12/2023 CBC W AUTO DIFFE RENTI AL PANEL - BLOOD hemoglobin [mass/volume ] in blood 14.6 g/dL 12.0-1 6.0 Not Available [facility] ([facility]) [facility] [place], [address], 08/12/2023 11:54:37 08/12/19 24 08/12/2023 CBC W AUTO DIFFE RENTI AL PANEL - BLOOD HCT vfr bld auto 46.8 % 36.0-4 8.0 Not Available [facility] ([facility]) [address] [place], [address], 08/12/2023 11:54:37 08/12/19 24 08/12/2023 CBC W AUTO DIFFE RENTI AL PANEL - BLOOD MCV [entitic volume] by automated count 92.5 fL 80-100 Not Available [facility] ([facility]) [facility] [place], [address], 08/12/2023 11:54:37 08/12/19 24 08/12/2023 CBC W AUTO DIFFE RENTI AL PANEL - BLOOD MCH [entitic mass] by automated count 28.9 pg 27-32 Not Available [facility] ([facility]) [facility] [place], [address], 08/12/2023 11:54:37 08/12/19 24 08/12/2023 CBC W AUTO DIFFE RENTI AL PANEL - BLOOD MCHC [mass/volume ] by automated count 31.2 g/dL 31.0-3 7.0 Not Available [facility] ([facility]) [address] [place], [address], 08/12/2023 11:54:37 08/12/19 24 08/12/2023 CBC W AUTO DIFFE RENTI AL PANEL - BLOOD erythrocyte distribution width [ratio] by automated count 14.0 % 12-14. 5 Not Available [facility] ([facility]) [address] [place], [address], 08/12/2023 11:54:37 08/12/19 24 08/12/2023 CBC W AUTO DIFFE RENTI AL PANEL - BLOOD platelets [#/volume] in blood by automated count 321 10*3/ uL 150-45 0 1054, 08/12 Not Available [facility] ([facility]) [address] [place] [address], [address], 08/12/2023 11:54:37 08/12/19 24 08/12/2023 CBC W AUTO DIFFE RENTI AL PANEL - BLOOD platelet mean volume [entitic volume] in blood by automated count 9.6 fL 9.1-13 .2 Not Available [facility] ([facility]) [address] [place] [address], [address], 08/12/2023 11:54:37 08/12/19 24 08/12/2023 CBC W AUTO DIFFE RENTI AL PANEL - BLOOD segmented neutrophils/ 100 leukocytes in blood by automated count 73.5 % 40-70 high Not Available [facility] ([facility]) [address] [place] [address], [address], 08/12/2023 11:54:37 08/12/19 24 08/12/2023 CBC W AUTO DIFFE RENTI AL PANEL - BLOOD lymphocytes/ 100 leukocytes in blood by flow cytometry (fc) 19.9 % 20-44 low Not Available [facility] ([facility]) [facility] [place], [address], 08/12/2023 11:54:37 08/12/19 24 08/12/2023 CBC W AUTO DIFFE RENTI AL PANEL - BLOOD monocytes/10 0 leukocytes in blood by automated count 5.1 % 2-9 Not Available [facility] ([facility]) [address] [place] [address], [address], 08/12/2023 11:54:37 08/12/19 24 08/12/2023 CBC W AUTO DIFFE RENTI AL PANEL - BLOOD eosinophils/ 100 leukocytes in blood by automated count 0.5 % 0-4 Not Available [facility] ([facility]) [address] [place] [address], [address], 08/12/2023 11:54:37 08/12/19 24 08/12/2023 CBC W AUTO DIFFE RENTI AL PANEL - BLOOD basophils/10 0 leukocytes in blood by automated count 0.6 % 0-1 Not Available [facility] ([facility]) [address] [place] [address], [address], 08/12/2023 11:54:37 08/12/19 24 08/12/2023 CBC W AUTO DIFFE RENTI AL PANEL - BLOOD neutrophils [#/volume] in blood by automated count 7.12 10*3/ uL 1.8-7. 7 Not Available [facility] ([facility]) [address] [place] [address], [address], 08/12/2023 11:54:37 08/12/19 24 08/12/2023 CBC W AUTO DIFFE RENTI AL PANEL - BLOOD lymphocytes [#/volume] in blood by automated count 1.93 10*3/ uL 0.9-4. 8 Not Available [facility] ([facility]) [address] [place] [address], [address], 08/12/2023 11:54:37 08/12/19 24 08/12/2023 CBC W AUTO DIFFE RENTI AL PANEL - BLOOD monocytes [#/volume] in blood by automated count 0.5 10*3/ uL 0-0.8 Not Available [facility] ([facility]) [address] [place] [address], [address], 08/12/2023 11:54:37 08/12/19 24 08/12/2023 CBC W AUTO DIFFE RENTI AL PANEL - BLOOD eosinophils [#/volume] in blood by automated count 0.05 10*3/ uL 0-0.7 Not Available [facility] ([facility]) [address] [place], [address], 08/12/2023 11:54:37 08/12/19 24 08/12/2023 CBC W AUTO DIFFE RENTI AL PANEL - BLOOD basophils [#/volume] in blood by automated count 0.06 10*3/ uL 0-0.2 Not Available [facility] ([facility]) [address] [place], [address], 08/12/2023 11:54:37 08/12/19 24 08/12/2023 CBC W AUTO DIFFE RENTI AL PANEL - BLOOD immature granulocytes [presence] in blood by automated count 0.4 % 0-0.7 Not Available [facility] ([facility]) [address] [place], [address], 08/12/2023 11:54:37 08/12/19 24 08/12/2023 CBC W AUTO DIFFE RENTI AL PANEL - BLOOD immature granulocytes [#/volume] in blood 0.04 10*3/ uL 0.00-0 .06 Not Available [facility] ([facility]) [facility] [place], [address], 08/12/2023 11:54:37 08/12/19 24 08/12/2023 CBC W AUTO DIFFE RENTI AL PANEL - BLOOD nucleated erythrocytes /100 leukocytes [ratio] in blood by automated count 0.0 % 0-0 Not Available [facility] ([facility]) [address] [place], [address], 08/12/2023 11:54:37 08/12/19 24 08/12/2023 VITAM IN D+MET ABOLI DESHAWN [MASS /VOLU ME] IN SERUM OR PLASM A vitamin D+metabolite s [mass/volume ] in serum or plasma 33.9 NG/mL 30-100 VITAM IN D RANGE S Defic ient: <20 ng/mL Insuf ficie nt: 20-<3 0 ng/mL Suffi cient : 30-10 0 ng/mL Toxic ity: >100 ng/mL Not Available [facility] ([facility]) [address] [place] [address], [address], 08/12/2023 12:31:19 08/12/19 24 08/12/2023 THYRO XINE (T4) FREE [MASS /VOLU ME] IN SERUM OR PLASM A thyroxine (T4) free [mass/volume ] in serum or plasma 1.40 NG/dL 0.78-2 .19 Not Available [facility] ([facility]) [address] [place] [address], [address], 08/12/2023 12:35:25 08/12/19 24 08/12/2023 COMPR EHENS WES METAB OLIC 2000 PANEL - SERUM OR PLASM A glucose [mass/volume ] in serum or plasma 93 mg/dL 74-106 Not Available [facility] ([facility]) [address] [place] [address], [address], 08/12/2023 13:05:32 08/12/19 24 08/12/2023 COMPR EHENS WES METAB OLIC 2000 PANEL - SERUM OR PLASM A urea nitrogen [mass/volume ] in serum or plasma 23 mg/dL 7-17 high Not Available [facility] ([facility]) [facility] [place], [address], 08/12/2023 13:05:32 08/12/19 24 08/12/2023 COMPR EHENS WES METAB OLIC 2000 PANEL - SERUM OR PLASM A creatinine [mass/volume ] in serum or plasma 0.8 mg/dL 0.7-1. 2 Not Available [facility] ([facility]) [address] [place] [address], [address], 08/12/2023 13:05:32 08/12/19 24 08/12/2023 COMPR EHENS WES METAB OLIC 1999 PANEL - SERUM OR PLASM A sodium [moles/volum e] in serum or plasma 139 mmol/ L 137-14 5 Not Available [facility] ([facility]) [address] [place], [address], 08/12/2023 13:05:32 08/12/19 24 08/12/2023 COMPR EHENS WES METAB OLIC 2000 PANEL - SERUM OR PLASM A potassium [moles/volum e] in serum or plasma 3.9 mmol/ L 3.5-5. 1 Not Available [facility] ([facility]) [address] [place], [address], 08/12/2023 13:05:32 08/12/19 24 08/12/2023 COMPR EHENS WES METAB OLIC 2000 PANEL - SERUM OR PLASM A chloride [moles/volum e] in serum or plasma 105 mmol/ L 98-107 Not Available [facility] ([facility]) [address] [place], [address], 08/12/2023 13:05:32 08/12/19 24 08/12/2023 COMPR EHENS WES METAB OLIC 2000 PANEL - SERUM OR PLASM A carbon dioxide, total [moles/volum e] in serum or plasma 26 mmol/ L 22-30 Not Available [facility] ([facility]) [address] [place], [address], 08/12/2023 13:05:32 08/12/19 24 08/12/2023 COMPR EHENS WES METAB OLIC 2000 PANEL - SERUM OR PLASM A calcium [mass/volume ] in blood 9.5 mg/dL 8.4-10 .2 Not Available [facility] ([facility]) [address] [place], [address], 08/12/2023 13:05:32 08/12/19 24 08/12/2023 COMPR EHENS WES METAB OLIC 2000 PANEL - SERUM OR PLASM A anion gap in serum or plasma 8 mEq/L 4-12 Not Available [facility] ([facility]) [address] [place], [address], 08/12/2023 13:05:32 08/12/19 24 08/12/2023 COMPR EHENS WES METAB OLIC 2000 PANEL - SERUM OR PLASM A urea nitrogen/cre atinine [mass ratio] in blood 28.7 % 12.0-2 0.0 high Not Available [facility] ([facility]) [address] [place], [address], 08/12/2023 13:05:32 08/12/19 24 08/12/2023 COMPR EHENS WES METAB OLIC 2000 PANEL - SERUM OR PLASM A osmolality of serum or plasma by calculation 281 mOsm/ kg 261-28 0 high Not Available [facility] ([facility]) [address] [place], [address], 08/12/2023 13:05:32 08/12/19 24 08/12/2023 COMPR EHENS WES METAB OLIC 2000 PANEL - SERUM OR PLASM A glomerular filtration rate/1.73 sq M.predicted [volume rate/area] in serum, plasma or blood by creatinine-b ased formula (CKD-epi) 75 mL 90-120 >=90 Chelsea l 60-89 Mildl y Decre ased 45-59 Mildl y to Moder ately Decre ased 30-44 Moder ately to Sever adam Decre ased 15-29 Sever adam Decre ased <15 Kidne y Failu re Not Available [facility] ([facility]) [address] [place], [address], 08/12/2023 13:05:32 08/12/19 24 08/12/2023 COMPR EHENS WES METAB OLIC 2000 PANEL - SERUM OR PLASM A bilirubin.to miguel [mass/volume ] in serum or plasma 1.00 mg/dL 0.2-1. 3 Not Available [facility] ([facility]) [address] [place], [address], 08/12/2023 13:05:32 08/12/19 24 08/12/2023 COMPR EHENS WES METAB OLIC 2000 PANEL - SERUM OR PLASM A aspartate aminotransfe rase [enzymatic activity/vol ume] in serum or plasma 32 U/L 14-36 Not Available [facility] ([facility]) [address] [place], [address], 08/12/2023 13:05:32 08/12/19 24 08/12/2023 COMPR EHENS WES METAB OLIC 2000 PANEL - SERUM OR PLASM A alanine aminotransfe rase [enzymatic activity/vol ume] in serum or plasma 45 U/L 0-34 high Not Available [facility] ([facility]) [address] [place], [address], 08/12/2023 13:05:32 08/12/19 24 08/12/2023 COMPR EHENS WES METAB OLIC 2000 PANEL - SERUM OR PLASM A alkaline phosphatase [enzymatic activity/vol ume] in serum or plasma 60 U/L 38-126 Not Available [facility] ([facility]) [facility] [place], [address], 08/12/2023 13:05:32 08/12/19 24 08/12/2023 COMPR EHENS WES METAB OLIC 2000 PANEL - SERUM OR PLASM A protein [mass/volume ] in serum or plasma 7.3 g/dL 6.3-8. 2 Not Available [facility] ([facility]) [address] [place], [address], 08/12/2023 13:05:32 08/12/19 24 08/12/2023 COMPR EHENS WES METAB OLIC 2000 PANEL - SERUM OR PLASM A albumin [mass/volume ] in serum or plasma 4.3 g/dL 3.5-5. 0 Not Available [facility] ([facility]) [address] [place], [address], 08/12/2023 13:05:32 08/12/19 24 08/12/2023 COMPR EHENS WES METAB OLIC 1999 PANEL - SERUM OR PLASM A globulin [mass/volume ] in plasma 3.0 g/dL 2.2-4. 2 Not Available [facility] ([facility]) [address] [place], [address], 08/12/2023 13:05:32 08/12/19 24 08/12/2023 COMPR EHENS WES METAB OLIC 2000 PANEL - SERUM OR PLASM A albumin/glob ulin [mass ratio] in serum or plasma 1.40 % 1.10-2 .20 Not Available [facility] ([facility]) [facility] [place], [address], 08/12/2023 13:05:32 08/12/19 24 08/12/2023 THYRO TROPI N [UNIT S/VOL UME] IN SERUM OR PLASM A thyrotropin [units/volum e] in serum or plasma 1.47 u[IU] /mL 0.465- 4.68 Not Available [facility] ([facility]) [facility] [place], [address], 08/12/2023 13:05:33 08/12/19 24 08/12/2023 RHEUM ATOID FACTO R [UNIT S/VOL UME] IN SERUM OR PLASM A rheumatoid factor [units/volum e] in serum or plasma < 8.6 8.6-11 .9 low Not Available [facility] ([facility]) [facility] [place], [address], 08/12/2023 13:05:33 08/12/19 24 08/12/2023 THYRO PEROX IDASE AB [UNIT S/VOL UME] IN SERUM OR PLASM A BY IMMUN OASSA Y thyroperoxid ase Ab [units/volum e] in serum or plasma by immunoassay 2 [IU]/ mL <9 THIS TEST WAS PERFO RMED AT: [facility] [address] [place], [place] Luh Hartley M.D., Ph.D. ,Dire ctor of Labor atori es Not Available [facility] ([facility]) [address] [place] [address], [address], 08/14/2023 07:45:24 08/12/19 24 08/12/2023 THYRO GLOBU LEO AB [UNIT S/VOL UME] IN SERUM OR PLASM A thyroglobuli n Ab [units/volum e] in serum or plasma 3 [IU]/ mL <=1 high THIS TEST WAS PERFO RMED AT: [facility] [address] [place], [place] Luh Hartley M.D., Ph.D. ,Dire ctor of Labor atori es Not Available [facility] ([facility]) [facility] [place], [address], 08/14/2023 07:45:25 08/12/19 24 08/12/2023 CYCLI C CITRU LLINA DASHA PEPTI DE IGG AB [UNIT S/VOL UME] IN SERUM OR PLASM A cyclic citrullinate d peptide IgG Ab [units/volum e] in serum or plasma <16 <20 Negat wes: <20 Weak Posit wes: 20 - 39 Moder ate Posit wes: 40 - 59 Stron g Posit wes: >59 THIS TEST WAS PERFO RMED AT: [facility] [address] [place], [place] Luh Hartley M.D., Ph.D. ,Dire ctor of Labor atori es Not Available [facility] ([facility]) [facility] [place], [address], 08/15/2023 07:03:51 08/12/19 24 08/12/2023 CATEC HOL UR-MC NC epinephrine [mass/volume ] in urine 6 mg/g{ cre} 2-16 This test was devel oped and its luke tical perfo rmanc e ilene cteri stics have been deter mined by [facility] [place], [place]. It has not been clear ed or appro alma by the U.S. Food and Drug Admin istra tion. This assay has been valid ated pursu ant to the CLIA regul ation s and is used for clini mandy purpo ses. Not Available [facility] ([facility]) [address] [place], [address], 08/15/2023 11:43:17 08/12/19 24 08/12/2023 CATEC HOL UR- NC norepinephri ne [mass/volume ] in urine 56 mg/g{ cre} 7-65 This test was devel oped and its luke tical perfo rmanc e ilene cteri stics have been deter mined by [facility] [employer] [place], [place]. It has not been clear ed or appro alma by the U.S. Food and Drug Admin istra tion. This assay has been valid ated pursu ant to the CLIA regul ation s and is used for clini mandy purpo ses. Not Available [facility] ([facility]) [address] [place], [address], 08/15/2023 11:43:17 08/12/19 24 08/12/2023 CATEC HOL UR- NC epinephrine+ norepinephri ne/creatinin e [mass ratio] in urine 62 mg/g{ cre} 9-74 This test was devel oped and its luke tical perfo rmanc e ilene cteri stics have been deter mined by [facility] [place], [place]. It has not been clear ed or appro alma by the U.S. Food and Drug Admin istra tion. This assay has been valid ated pursu ant to the CLIA regul ation s and is used for clini mandy purpo ses. Not Available [facility] ([facility]) [address] [place], [address], 08/15/2023 11:43:17 08/12/19 24 08/12/2023 CATEC HOL UR-MC NC dopamine [mass/volume ] in urine 296 mg/g{ cre} 40-390 This test was devel oped and its luke tical perfo rmanc e ilene cteri stics have been deter mined by [facility] [place] [employer], [place]. It has not been clear ed or appro alma by the U.S. Food and Drug Admin istra tion. This assay has been valid ated pursu ant to the CLIA regul ation s and is used for clini mandy purpo ses. Not Available [facility] ([facility]) [address] [place], [address], 08/15/2023 11:43:17 08/12/19 24 08/12/2023 CATEC HOL UR-MC NC creatinine [mass/volume ] in urine 96 mg/dL 20-275 THIS TEST WAS PERFO RMED AT: [facility] [address] [facility] [place], [place] Luh Hartley M.D., Ph.D. ,Dire ctor of Labor atori es Not Available [facility] ([facility]) [address] [place], [address], 08/15/2023 11:43:17 08/12/19 24 08/12/2023 METAN EPHRI ERA [MASS /VOLU ME] IN SERUM OR PLASM A metanephrine s [mass/volume ] in serum or plasma <25 pg/mL <=57 This test was devel oped and its luke tical perfo rmanc e ilene cteri stics have been deter mined by [facility] [place]. It has not been clear ed or appro alma by the U.S. Food and Drug Admin istra tion. This assay has been valid ated pursu ant to the CLIA regul ation s and is used for clini mandy purpo ses. Not Available [facility] ([facility]) [address] [place], [address], 08/18/2023 07:09:46 08/12/19 24 08/12/2023 METAN EPHRI ERA [MASS /VOLU ME] IN SERUM OR PLASM A normetanephr ine [mass/volume ] in serum or plasma 181 pg/mL <=148 high This test was devel oped and its luke tical perfo rmanc e ilene cteri stics have been deter mined by [facility] [place]. It has not been clear ed or appro alma by the U.S. Food and Drug Admin istra tion. This assay has been valid ated pursu ant to the CLIA regul ation s and is used for clini mandy purpo ses. Not Available [facility] ([facility]) [address] [place], [address], 08/18/2023 07:09:46 08/12/19 24 08/12/2023 METAN EPHRI ERA [MASS /VOLU ME] IN SERUM OR PLASM A metanephrine and normetanephr ine panel [mass/volume ] - serum or plasma 181 pg/mL <=205 For addit ional infor dexter casas e refer to http: //kiran nguyen.que stdia gnost ics.c om/fa q/Met Fract Free (This link is being provi ded for infor matio nal/e ducat io infor matio nal/e ducat ional purpo ses only. ) [place] tions >4-fo ld upper refer ence range : stron gly sugge stive of a pheoc hromo cytom a(1). [place] tions >1- 4-fol d upper refer ence range : signi fican t but not diagn ostic , may be due to medic ation s or stres s. Sugge st runni ng 24 hr urine fract ionat ed metan ephri era and/o r serum Chrom agran in A for confi rmati on. Refer ence: (1)Al gecir as-Sc himni ch A et al, Plasm a Chrom ogran in A or Urine Fract ionat ed Metan ephri era Follo w-Up Testi ng Impro ves the Diagn ostic Accur acy of Plasm a Fract ionat ed Metan ephri era for Pheoc hromo cytom a. The Journ al of Clini mandy Endoc rinol ogy # Metab olism 93(1) , 91-95 , 2007. This test was devel oped and its luke tical perfo rmanc e ilene cteri stics have been deter mined by [facility] [place]. It has not been clear ed or appro alma by the U.S. Food and Drug Admin istra tion. This assay has been valid ated pursu ant to the CLIA regul ation s and is used for clini mandy purpo ses. THIS TEST WAS PERFO RMED AT: [facility] [address] [facility] [place], [place] Luh Hartley M.D., Ph.D. ,Dire ctor of Labor atori es Not Available [facility] ([facility]) [address] [facility], [place], [address], 08/18/2023 07:09:46 08/12/19 24 08/12/2023 METAN EPHRI ERA [MASS /VOLU ME] IN URINE metanephrine s [mass/volume ] in urine 69 mg/g{ cre} 21-153 This test was devel oped and its luke tical perfo rmanc e ilene cteri stics have been deter mined by [facility] [place], [place]. It has not been clear ed or appro alma by the U.S. Food and Drug Admin istra tion. This assay has been valid ated pursu ant to the CLIA regul ation s and is used for clini mandy purpo ses. Not Available [facility] ([facility]) [address] [place], [address], 08/18/2023 07:11:52 08/12/19 24 08/12/2023 METAN EPHRI ERA [MASS /VOLU ME] IN URINE normetanephr ine [mass/volume ] in urine 339 mg/g{ cre} 108-52 4 This test was devel oped and its luke tical perfo rmanc e ilene cteri stics have been deter mined by [facility] [place]. It has not been clear ed or appro alma by the U.S. Food and Drug Admin istra tion. This assay has been valid ated pursu ant to the CLIA regul ation s and is used for clini mandy purpo ses. Not Available [facility] ([facility]) [address] [place], [address], 08/18/2023 07:11:52 08/12/19 24 08/12/2023 METAN EPHRI ERA [MASS /VOLU ME] IN URINE metanephrine s [mass/volume ] in urine 408 mg/g{ cre} 149-60 3 A four fold eleva tion of urina ry norme tanep hrine s is extre nicole likel y to be due to a tumor , while a four fold eleva tion of urina ry metan ephri era is highl y sugge stive , but not diagn ostic of the tumor . Measu remen t of plasm a Metan ephri era and Chrom ogran in A is recom giovanni d for confi rmati on. Not Available [facility] ([facility]) [address] [place], [address], 08/18/2023 07:11:52 08/12/19 24 08/12/2023 METAN EPHRI ERA [MASS /VOLU ME] IN URINE creatinine [mass/volume ] in urine 96 mg/dL 20-275 THIS TEST WAS PERFO RMED AT: [facility] [address] [place], [place] Luh Hartley M.D., Ph.D. ,Dire ctor of Labor atori es Not Available [facility] ([facility]) [address] [facility], [place], [address], 08/18/2023 07:11:52 08/12/19 24 08/12/2023 CATEC HOLAM SUPA 3 PNL PLAS- [facility] catecholamin es [mass/volume ] in plasma see below high ----- ----- ----T ESTS- ----- ----- --RES ULTS- ----- --UNI TS--R EF. RANGE --- Epine phrin e 15 pg/mL Refer ence Range : SUPIN E: <58 UPRIG HT: <82 Norep ineph rine 682 pg/mL Refer ence Range : SUPIN E: 149-5 64 UPRIG HT: 199-9 37 Dopam ine 33 H pg/mL Refer ence Range : SUPIN E: <16 UPRIG HT: <27 Total Catec holam supa 730 pg/mL Refer ence Range : SUPIN E: <632 UPRIG HT: <1046 Due to stres s, plasm a catec holam ine level s are gener ally unrel iable in infan ts and small child adam. Urina ry catec holam ine assay s are more relia ble. This test was devel oped and its luke tical perfo rmanc e ilene cteri stics have been deter mined by [facility]. It has not been clear ed or appro alma by FDA. This assay has been valid ated pursu ant to the CLIA regul ation s and is used for clini mandy purpo ses. Test perfo rmed by [facility] [address] [facility], [place] [address] Phone : [phone] Medic al Direc tor: Edith escalante MD,PH D,YECENIA THIS TEST WAS PERFO RMED AT: [facility] [address] [place] [address] Edith escalante MD,PH D,YECENIA Not Available [facility] ([facility]) [address] [facility], [place], [address], 09/01/2023 07:27:22 07/29/19 19 07/28/2018 digit al mammo scree magnolia ravin [facility] [address] [place] [address] Radiol ogy Report Patijitendra t: SHELLI MORGAN dasha: [phone] MR #: [id number] /AG E/SEX: 03/31/ 4 / 73 / F Room/B ed: Locati on: [place] [facility] Access ion: [id number] Exam: Digita l Mammo Screen ing Ravin Reason : SCREEN ING Orderi ng Provid er: Anna Roberson MD, FACP Attend ing Provid er: Anna Roberson MD, FACP CC: Freeman minor MD, Robinson; Warden MENARD, Ta Romero. Report Number :[id number] #[id number] [id number] [facility] - DIGITA L MAMMO SCREEN ING RAVIN BILATE RAL DIGITA L SCREEN ING MAMMOG MARIBELL WITH CAD: 019 Compar lizzy is made to exams dated: 03/13/20 16 mammog maribell, 2016 mammog maribell, and 015 mammog maribell - [facility] . Curren t study contai ns 6 films. There are scatte red fibrog landul ar elemen ts in both breast s that could obscur e a lesion on mammog you. Curren t study was also evalua dasha with a Comput er Aided Detect ion (CAD) system . There is a benign calcif icatio n left breast . No signif icant masses , calcif icatio ns, or other findin gs are seen in either breast . There has been no signif icant interv al change . IMPRES NEMO: There is no mammog raphic eviden ce of malign mariusz. A 1 year screen ing mammog maribell is recomm ended. Patien t inform ation entere d into a remind er system with a target due date for the next mammog maribell Ta Leyva M.D. mw/rodo rad: 9 14:17: 20 Imagin g Techno logist (s): Sissy Kiser, BSRT(R )(M), [facility] letter sent: Normal /Negat wes Mammog maribell BI-RAD S: 2 Benign End of Report Dictat ed by: Warden MENARD, Ta Frankel 1401 Transc riptio nist: Ta Leyva MD 1417 Signed by: Ta Evans MD 1417 [email or web address] [facility] [address] [place], [address], 07/30/2018 09:51:25 Result Notes None recorded. 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 201305/11/2018 ICD10 Descript ion: Other iodine-d eficienc y related thyroid disorder s and allied conditio ns Patricia ramirez [facility] 8 08:45:25 Secondar y hypothyr oidism 47520408 Completed 201305/11/2018 Location : None Sev erity: Moderate Progres s: Stable A dded By: Deirdre Loving dd to Current Problems : YES [facility] 8 08:45:49 Gastroes ophageal reflux disease 724036584 Active 2013 Not Available [facility] 8 04:02:07 Vitamin D deficien cy 00265291 Active 2013 Not Available [facility] 8 04:02:07 Cramp in limb 328578868 Completed 201305/07/2018 [facility] 8 10:24:05 Chest pain 20370970 Completed 201305/11/2018 Patricia Bergeron [facility] 8 08:45:30 Clinical finding Active 2013 ICD10 Descript ion: Gastro-e sophagea l reflux disease without esophagi tis Not Available [facility] 8 23:12:32 Eruption 787667010 Active 2013 Not Available [facility] 8 23:12:33 Nausea 854160023 Completed 201405/07/2018 [facility] 8 10:24:03 Generali zed abdomina l pain 741668790 Completed 201405/07/2018 [facility] 8 10:23:20 Eruption 669065914 Completed 201405/07/2018 [facility] 8 10:23:51 Fibromyo sitis 00138820 Completed 201405/07/2018 [facility] 8 10:23:39 Myalgia/ myositis - multiple 254106019 Completed 201412/18/2014 Location : None Sev erity: Moderate Progres s: Stable A dded By: Marycarmen Gaston Add to Current Problems : YES Not Available [facility] 8 05:31:01 Palpitat ions 58808213 Active 2014 ICD10 Descript ion: Palpitat ions Not Available [facility] 8 23:12:34 Precordi al pain 99185324 Completed 201405/07/2018 ICD10 Descript ion: Precordi al pain [facility] 8 10:24:14 Vaginiti s and vulvovag initis Completed 201405/29/2015 Location : None Sev erity: Moderate Progres s: Stable A dded By: MARIA FERNANDA MCNAMARA dd to Current Problems : NO [facility] 8 10:23:27 Seborrhe ic dermatit is 25946262 Active 2014 ICD10 Descript ion: Other seborrhe ic keratosi s Not Available [facility] 8 04:02:07 Senile hyperker atosis 260867151 Completed 201405/07/2018 Location : None Sev erity: Moderate Progres s: Stable A dded By: Robinson Zuluaga Add to Current Problems : YES [facility] 8 10:23:58 Hyperten sive disorder 04453388 Active 2014 ICD10 Descript ion: Essentia l (primary ) hyperten nemo Not Available [facility] 8 23:12:33 Palpitat ions 09179559 Completed 201505/07/2018 ICD10 Descript ion: Palpitat ions [facility] 8 10:24:26 Shoulder joint pain 645719828 Completed 201505/07/2018 ICD10 Descript ion: Pain in left shoulder [facility] 8 10:23:43 Allergic rhinitis caused by pollen 11441079 Active 2015 ICD10 Descript ion: Allergic rhinitis due to pollen Not Available [facility] 8 23:12:36 Pharyngi tis 356452514 Completed 201505/07/2018 ICD10 Descript ion: Acute pharyngi tis, unspecif ied [facility] 8 10:24:00 Acute pharyngi tis 430326581 Completed 201506/17/2016 Location : None Sev erity: Moderate Progres s: Stable A dded By: Robinson Zuluaga Add to Current Problems : NO Not Available [facility] 8 05:31:02 Finding of pharynx Active 2015 ICD10 Descript ion: Acute pharyngi tis, unspecif ied Not Available [facility] 8 23:12:36 Neck pain 83326625 Completed 201605/07/2018 ICD10 Descript ion: Cervical julio [facility] 8 10:24:18 Closed Colles' fracture 354623065 Completed 201605/07/2018 Relation : Self [facility] 8 10:23:46 Allergic rhinitis caused by pollen 09580231 Completed 201605/07/2018 ICD10 Descript ion: Allergic rhinitis due to pollen [facility] 8 10:23:32 Hyperten sive disorder 54417347 Completed 201605/11/2018 ICD10 Descript ion: Essentia l (primary ) hyperten nemo Patricia [facility]oliam [facility] 8 08:45:36 Cough 26065352 Completed 201605/07/2018 ICD10 Descript ion: Cough [facility] 8 10:24:07 Benign essentia l hyperten nemo 5310339 Active 2016 Location : None Sev erity: Moderate Progres s: Stable A dded By: Deirdre Loving dd to Current Problems : YES Not Available [facility] 8 05:31:02 Lack of energy 450418929 Completed 201605/07/2018 ICD10 Descript ion: Other fatigue Patti Westbrook [facility] 8 10:23:41 Abnormal weight gain 384928932 Completed 201605/11/2018 ICD10 Descript ion: Abnormal weight gain Patricia Bergeron [facility] 8 08:45:21 Malaise and fatigue 173239244 Completed 201605/07/2018 Location : None Sev erity: Moderate Progres s: Stable A dded By: Jessica Johnson to Current Problems : YES Patti Westbrook [facility] 8 10:23:48 Tension- type headache 231665958 Completed 201605/07/2018 ICD10 Descript ion: Tension- type headache , unspecif ied, not intracta ble Patti Westbrook [facility] 8 10:23:55 Neck pain 17733382 Completed 201607/15/2017 Location : None Sev erity: Moderate Progres s: Stable A dded By: Marnie Vega dd to Current Problems : YES Patti Westbrook [facility] 8 10:24:18 Acute pharyngi tis 544745320 Completed 201609/01/2017 Location : None Sev erity: Moderate Progres s: Stable A dded By: Marnie Vega dd to Current Problems : YES Not Available [facility] 8 05:31:01 Disorder of lung 23300926 Completed 201705/07/2018 Patti Pietro [facility] 8 10:23:29 Vaginiti s and vulvovag initis Completed 201705/07/2018 Patti Pietro [facility] 8 10:23:27 Heartbur n [id number] Completed 201705/07/2018 ICD10 Descript ion: Heartbur n Patti Pietro [facility] 8 10:23:24 Vulvovag initis 92773343 Completed 201705/07/2018 Location : None Sev erity: Moderate Progres s: Stable A dded By: Rosalina October Mike d to Current Problems : YES [facility] 10:24:11 Hypothyr oidism 90741754 Completed 201702/04/2018 Location : None Sev erity: Moderate Progres s: Stable A dded By: MARIA FERNANDA MCNAMARA dd to Current Problems : NO Not Available [facility] 8 03:55:47 Pain in limb 39148741 Active 2017 Location : None Sev erity: Moderate Progres s: Stable A dded By: Rosalina October d to Current Problems : YES Not Available [facility] 8 03:55:47 Headache 22206247 Completed 201704/05/2018 Location : None Sev erity: Moderate Progres s: Stable A dded By: MATHEUS ZAMORA Add to Current Problems : NO Not Available [facility] 8 03:55:43 Accident al fall Active 2017 Location : None Sev erity: Moderate Progres s: Stable A dded By: MATHEUS ZAMORA Add to Current Problems : NO Not Available [facility] 8 03:55:44 Irritabl e bowel syndrome 50810042 Active 2017 Location : None Sev erity: Moderate Progres s: Stable A dded By: MARIA FERNANDA MCNAMARA dd to Current Problems : NO Not Available [facility] 8 03:55:47 Vascular headache 799567723 Active 2017 ICD10 Descript ion: Vascular headache , not elsewher e classifi ed Not Available [facility] 8 23:12:38 Muscle weakness 08195633 Active 2017 Matheus ramirez [facility] 8 12:18:08 Incontin ence 92421875 Active 2017 Matheus ramirez [facility] 8 12:18:15 Foot pain 00534228 Active 2017 Matheus ramirez [facility] 8 12:18:57 Notes:Some problems listed i n Document: #[id number] could not be added to this patient's chart. Please review this document and add these problems to the patient's chart manually as needed. Problem Notes None recorded. Procedures Surgical History Date Name Laterality Status Provider Name and Address Organization Details Recorded Time procedure on shoulder completed Nicolasa Bryan [facility] 08/12/2023 10:11:48 Knee Surgery completed Matheus [facility] 05/11/2018 12:20:06 Wrist Surgery completed Matheus [facility] 05/11/2018 12:20:31 Appendectomy completed Matheus Zamora [facility] 05/11/2018 12:20:37 Cholecystectomy completed Matheus Zamora [facility] 05/11/2018 12:20:42 Hysterectomy completed [facility] 05/11/2018 12:20:49 Imaging Results None recorded. Procedure Notes None recorded. Medical Equipment None Reported. Allergies Allergen ID Allergen Name Allergen Category Reaction Reaction Severity Criticality Documentation Date Start Date Code Code System Note Provider Name and Address Organization Details Recorded Time 696222 oxycodone medicatio n Not available Not available Not available 03/03/20182013 7804 RxNorm Sever ity: Moder ate; Comme nt: Aller gy Type: Aller gy; Not Available [facility] 8 23:22:59 28963 oxycodone hydrochlo ride medicatio n Not available Not available Not available 09/11/20162012 29531 RxNorm Patti Pietro ramirez [facility] 8 10:30:13 Medications Name Sig Start Date Stop Date Status Note LastModified by Organization Details LastModified Time sucralfat e 1 gram tablet TAKE ONE TABLET BY MOUTH TWICE DAILY 08/12 completed Not Available Not Available Not Available lisinopri l 20 mg tablet Take 1 tablet twice a day by oral route. active Not Available Not Available No t Available Levoxyl 100 mcg tablet take 1 tablet (100 mcg) by oral route once daily 05/07 completed Levoxyl Oral tablet 100 mcg;[place] rded Status: Recorded on: 04/01/20 13 2:39PM;U ser: swilkers on;Indic ation: Hypothyr oidism - ();Pres cription Date: 04/02/20 13 01:52:48 ;Clinica l Medicati on Id: [id number];U nique Medicati on Id: [id number];P rescribe d: Outside Prescrib ed Medicati on Not Available Not Available Not Available acyclovir 400 mg tablet TAKE ONE TABLET BY MOUTH THREE TIMES DAILY NEEDED 08/12 completed Not Available Not Available Not Available levothyro xine 25 mcg tablet Take 4 tablets every day by oral route. active Not Available Not Available No t Available lorazepam 0.5 mg tablet TAKE 1 TABLET BY MOUTH EVERY 12 HOURS NEEDED 08/12 completed Not Available Not Available Not Available amlodipin e 10 mg tablet Take 1 tablet every day by oral route. active Not Available Not Available No t Available butalbita l 50 mg-acetam inophen 325 mg-caffei ne 40 mg-codein e 30 mg cap Take 1 capsule every 4-6 hours by oral route as needed. 08/12 completed Not Available Not Available Not Available lisinopri l 10 mg tablet Take 1 tablet every day by oral route as needed. 08/12 completed Not Available Not Available Not Available Imitrex 25 mg tablet Take 1 tablet as needed by oral route. 08/12 completed Not Available Not Available Not Available cyclobenz aprine 5 mg tablet TAKE 1 TABLET BY MOUTH ONCE DAILY AT BEDTIME 08/12 completed Not Available Not Available Not Available Vitals Date Recorded Body temperature Body weight Heart rate Oxygen saturation Oxygen saturation in Arterial blood by Pulse oximetry Body mass index (BMI) Body height Respiratory rate Systolic And Diastolic Provider Name and Address Organization Details Last Updated DateTime 4 96.5 [degF] 27057.1 7 g 79 /min 96 % 96 % 39 kg/m2 157.48 cm 16 /min 142/80 mm[Hg] Nicolasa VELÁZQUEZ - [facility] 4 10:21:28 Date Recorded Body height Body mass index (BMI) Body weight Heart rate Oxygen saturation Oxygen saturation in Arterial blood by Pulse oximetry Systolic And Diastolic Provider Name and Address Organization Details Last Updated DateTime 8 157.48 cm 38 kg/m2 06426.4 2 g 92 /min 96 % 96 % 152/90 mm[Hg] Matheus Zamora [facility] 8 12:14:38 Date Recorded Body height Heart rate Respiratory rate Body mass index (BMI) Body weight Oxygen saturation Oxygen saturation in Arterial blood by Pulse oximetry Systolic And Diastolic Provider Name and Address Organization Details Last Updated DateTime 8 157.48 cm 104 /min 12 /min 37.3 kg/m2 90761.8 4 g 95 % 95 % 150/90 mm[Hg] October Rosalina [facility] 8 15:51:03 Social History Question Answer Notes LastModified by [employer] Details LastModified Time Tobacco Smoking Status Never Smoker Not Available [facility] 05/02/2020 03:11:10 Home O2 No Information no t available 05/13/2018 How Often Do You Need To Have Someone Help You When You Read Instructions, Pamphlets, Or Other Written Material From Your Doctor Or Pharmacy? 1-Never [email or web address] Information not available 05/11/2018 What Was The Date Of Your Most Recent Tobacco Screening? 05/13/2018 [id number] Information not available 05/02/2020 What Is Your Relationship Status? [id number] Information not available 05/02/2020 Sex: Unknown Functional Status Question Answer Note LastModified by [employer] Details LastModified Time What is your level of alcohol consumption? None [id number] Information not available 05/02/2020 Are you currently employed? 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 Family History Relationship Description Onset Age of this Age Resolved Age Notes LastModified by Organization Details LastModified Time Mother Systemic lupus erythematosu s [email or web address] Not available 2023 10:11:00 Mother Multiple myeloma [email or web address] Not available 2023 10:11:08 Father Malignant neoplasm of lung [email or web address] Not available 2023 10:11:17 Medical History Condition Response Vitamin D Deficiency Y Other Y Muscular System Issues Y GERD/Reflux Y Gastrointestinal Disease Y Lung Mass Y Fibromyalgia Y Headaches Y Hypertension Y Hypothyroidism Y Gynecological HistoryNo gynecological history recorded. Obstetrics History GPAL:G 0 P 0 0 0 0 Past Encounters Encounter ID Performer Location Encounter Start Date Encounter Closed Date Diagnosis/Indication Diagnosis SNOMED-CT Code Diagnosis ICD10 Code Diagnosis IMO Codes Diagnosis Note [id number] Shemar Zuluaga MD [facility] [address] [place] [address] 05/11/2018 11:59:21 05/11/2018 12:52:10 Benign essential hypertension 2853906 I10 currently taking Lisinopril for control Gastroesop hageal reflux disease 839618339 K21.9 currently controlled by diet and exercise. Hypothyroidism 87079973 E03.9 She is taking Levothyrox ine daily Foot pain 40153101 M79.6 71 Pain in her right foot especially in her second toe on her right foot Incontinence 14237815 R3 2 Complainin g of having problems with incontinen ce. Muscle weakness 28295945 M62.81 especially in her second toe on her right foot. Dyspnea 194327029 R06.00 [id number] Marnie Jett APRN [facility] [address] [place] [phone] 05/13/2018 15:23:45 05/14/2018 11:53:56 Throat irritation 852198836 R07.[id number] DO [facility] [address] [place] [address] [place] [phone] 08/12/2023 09:57:26 08/12/2023 11:05:08 Anti-nuclear factor detected 186104977 R76.8 Hypertensive disorder 38 858637 I10 Health Concerns Section Related Observation LastModified by Organization Detai ls LastModified Time None Recorded Concern Status LastModified by Organization Details LastModified Time None Recorded Advance Directives Directive None Recorded Payers Insurance Date Sequence Insurance Name Policy Number Policy Soto Covered Member ID Soto Member ID Guarantor Name 04/27/2024 1 [facility] (MEDICARE REPLACEMENT/ADV ANTAGE - PPO) [id number] Shelli Morgan [id number] Shelli Morgan 08/12/2023 2 [employer] (MEDICARE SUPPLEMENT) Shelli Morgan [id number] Shelli Morgan 08/12/2023 1 [place] Shelli Morgan [id number] Shelli Morgan Notes Date Note Type Note Provider Name and Address Organization Details Recorded Time 05/11/2018 text/html Reflux/GERDRepor dasha by PatientHPIFor symptoms, patient reportsasymptomatic,n o difficulty swallowing,no pain swallowing, andno postprandial pain. For severity, patient reportsimproving. For context, patient reportsnon-smoker,no drug/alcohol abuse,no drug alcohol withdrawal, andnot related to food/drink. For associated symptoms, patient reportsno frequent coughing,no feeling of fullness/mass in throat,no hoarseness,no food getting stuck,no belching/burping,no nausea,no vomiting,not vomiting blood,no regurgitation,no shortness of breath,no chest pain,no heartburn,no difficulty swallowing,no pain when swallowing,no bad taste,no decreased appetite,no weight loss,no black/tarry stools,no fatigue, andno throat pain. HypothyroidReported by PatientHPIFor associated symptoms, patient reportsno weakness,no lightheadedness,no fatigue,no cold intolerance,no constipation,no weight gain,no involuntary weight loss,normal mood,no menstrual irregularity,no pain,no dry/coarse skin,no edema,no deepening of the voice,no hoarseness,no goiter,no mass detected,no chest pain, andno palpitations. Hypertension IM/FMReported by PatientHPIFor onset/timing, patient reportsbetter. For self care, patient reportsnot under emotional stress,non-smoker,on special diet,limiting alcohol intake, andexercises regularly. For associated symptoms, patient reportsno shortness of breath,no fatigue,no palpitations,no decline in exercise capacity,exertional dyspnea,no snoring,no sleep apnea,no muscle weakness,no numbness,no tingling,no tachycardia,no excessive sweating,no thinning skin,no flank pain,no headaches,no loss of vision, andno chest pain.ROS as noted in the HPI Patient states he is here for a follow up. Her right foot is still painful, she went to the foot doctor 3 times and it hurts worse. About a year and a half ago she had an episode that her muscles let go, she became incontinent and more fatigue. She said this was all after her thyroid medication change. She said she is having episodes of random places and times on her body she will have itchying , achy, and burning feeling. Patient states she has an odor with her urine, she denies any other symptoms. She has gained 31 pounds in 4 years.She states that her right foot is hurting so bad that she is unable to walk at times. She is having pain and drawing in her second toe on her right foot. Robinson ramirez [facility] 05/17/2018 23:16:31 05/13/2018 text/html She is following up after a visit to the ER last night at the [facility] for difficulty breathing. She states she went to the ER because she was having an episode of choking and not being able to get her breath. She states she gets a feeling in her throat when this happens. Marnie Jett, SR. [employer] ADMINISTRATOR [address] [place], [address], [place] [facility] 05/14/2018 09:09:08 08/12/2023 text/html Reason for referral: Arthralgia, myalgia, ANGELA positive by PCP Dr. Aubrey William ([facility]) HPI: 08/12/2023-Shelli reports she has flare ups where her blood pressure goes up, her face gets red/hot. She gets prednisone from PCP when she has these flare ups and it helps. She states she saw rheum Dr. Genna Stewart in [place], [place] several years ago. She says she was diagnosed with psoriatic arthritis by Dr. Babak Vance in [place] about 25 years ago; who later disclosed to patient he felt this was a misdiagnosis. She was treated with MTX. MTX did not improve symptoms.She was then told she had fibromyalgia. She reports she was treated with other antirheumatic medications, but cannot remember the names. She states she just got over a flare up about 2 week ago and received prednisone. She reports some joint pain and swelling to hands at times, and she gets injections from Dr. Chandra in [place]. Her last injection was one week ago. Pain and swelling to her hands is not concentrated to a certain time of day or activity. She reports her hands are itchy at random. She describes this as a stinging burning itch . She describes her biggest complaint as increased weakness, rash to face, HTN episode and general malaise with flares but notably also had URI sxs. She reports she has had 2 courses of steroids for flares x2 in the last 8 months. She reports she starts with 10-20mg for one week at a time. Her last course was 3 weeks ago. Patient denies photophobic rash, lupus rashes, pleuritic chest pain, pleural/pericardial effusions, foamy or frothy urine, hematuria. She reports she did have one episode of pleurisy which was treated and resolved with steroids about 2 years ago. She reports she has had psoriasis to her elbows since 1968. She has been treating this with topical steroids. She is followed by dermatology. She reports HTN as high as 200s/100s with flares . She is currently taking lisinopril 40mg and amlodipine 10mg. Patient denies inflammatory eye disease, inflammatory bowel disease. 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 She reports a history of adrenal incidental adenoma. Pain: 12/14 Current Antirheumatic Medications: Previous Antirheumatic Medications: MTX (stopped r/t lung nodules) Autoimmune Serologies:12/03/2022 (referral record 04/11/2023)Centromere B negativeRNP negativeANA 1: 40, nuclear homogenousdsDNA crithidia negativeC3 157C4 35Smith negativeSSA negativeSCL 70 negativeTPO negativeJo 1 negativeSSB negative Other Labs:12/03/2022 (referral record 04/11/2023)CMP WNLCRP 5.9 (RR 0 4 0.9)CBC WNLESR 29 FHx:mother- multiple myeloma, Lupusfather- lung cancer PMH:Anxiety, asthma, hyper tension, hypothyroidism, fibromyalgia, GERD, IBS, lung nodule, macular degeneration, vitamin D deficiency, glaucoma Age at menopause: PSH:Appendectomy, cholecystectomy, hysterectomy (1987), total knee replacements bilaterally, left wrist surgery (r/t fx), bladder sling surgery (1987) [address] [place], [address], [facility] - [facility] 08/17/2023 19:39:42 OBGyn Episode No OBEpisode recorded.
--- NOTE | 2025-05-01 16:07 | ECG_ITS ---
[facility]: [facility]01 Pat Name: Shelli Raza Department: Room: Gender: Female Home [employer] Lpn: : 1945 Requested By: Ekaterina Erwin Order Number: [id number] Reading MD: RAEGAN ULRICH Measurements Intervals [place] Rate: 92 P: 41 TN: 162 QRS: 18 QRSD: 102 T: 61 QT: 345 QTc: 427 Interpretive Statements SINUS RHYTHM POSSIBLE ANTERIOR MYOCARDIAL INFARCTION , PROBABLY OLD [30 ms Q WAVE IN V3/V4, OR R < 0.2 mV IN V4] Compared to ECG 02/10/2025 15:08:46 Myocardial infarct finding now present ST (T wave) deviation no longer present Electronically Signed On 05-01-2025 22:23:14 CDT by RAEGAN ULRICH [email or web address]
--- NOTE | 2025-05-01 16:12 | ED_ITS ---
HPI - General Adult 2 General: Chief complaint: General Medical Stated complaint: Coughing and sore throat Time Seen by Provider: 05/01/25 16:01 Source: patient Mode of arrival: ambulatory Limitations: no limitations History of Present Illness: 80-year-old female with a history of BRENDA D states she has been having bad reflux since Friday. She states that since this morning she has been having some pain in her throat along with a dry cough. States she has had some mild dyspnea she denies any chest pain she denies any fever or productive cough. She is on PPI. She denies any fevers. Related Data Home Medications ?Medication ?Instructions ?Recorded ?Confirmed levothyroxine 100 mcg capsule 100 mcg PO DAILY 0 10/14/23 Previous Rx's ?Medication ?Instructions ?Recorded tramadol 50 mg tablet (Ultram) 50 mg PO Q12H pain 30 d ays #60 tabs 05/15/22 azithromycin 250 mg tablet See Rx Instructions PO .COM PLEX #6 10/10/22 tabs benzonatate 200 mg capsule 200 mg PO TID PRN cough #90 caps 10/10/22 prednisone 20 mg tablet See Rx Instructions PO BID # 15 tabs 12/03/22 fluconazole 100 mg tablet 100 mg PO DAILY #30 tabs (Diflucan) prednisone 10 mg tablet See Rx Instructions .Route 1 08/17/22 .COMPLEX #30 tabs prednisone 20 mg tablet 20 mg PO DAILY inflammation #10 07/17/23 tabs prednisone 20 mg tablet 20 mg PO DAILY inflammation #30 07/23/23 tabs amlodipine 10 mg tablet 10 mg PO DAILY bp #90 tabs 0 08/05/23 duloxetine 30 mg capsule,delayed 30 mg PO DAILY pain # 30 caps 09/29/23 release hydralazine 50 mg tablet See Rx Instructions PO TID H TN #90 10/14/23 tabs aspirin 325 mg tablet 325 mg PO DAILY #30 tabs 01/28 lisinopril 20 mg tablet See Rx Instructions .Route 1 .COMPLEX #180 tabs Allergies Allergy/AdvReac Type Severity Reaction Status Date / Time oxycodone (From OxyContin) Allergy ALGY-Difficulty Verified 02/10/25 15:13 Breathing hydrochlorothiazide AdvReac rash Verified 02/10/25 15:13 Review of Systems 2 ENMT: Reports: throat pain PFSH ED 2 PFSH: Medical History Anxiety Essential hypertension Asthma Hypothyroidism Social History Smoking and tobacco/nicotine status: never used tobacco/nicotine Second hand smoke exposure: No Alcohol intake: never Substance/Drug Use: never Lives independently: Yes Household members: spouse Housing: House Marital status: Physical Exam 2 Const: COMMON NORMALS: no acute distress, patient oriented x3 and healthy appearing HENMT: COMMON NORMALS: normocephalic and atraumatic HEAD & SCALP: n ormocephalic and atraumatic THROAT: posterior oropharynx normal Neck/C-Spine: COMMON NORMALS: full ROM and supple Chest: COMMONS NORMALS: normal inspection of the chest and normal palpation of entire chest wall Resp: COMMON NORMALS: normal respiratory effort, No retractions, No use of accessory muscles and clear to auscultation bilaterally AUSCULTATION: clear to auscultation bilaterally Cardio: COMMON NORMALS: regular rate, regular rhythm and No murmurs present (Cardio) RATE: regular rate RHYTHM: regular rhythm Extremity: COMMON NORMALS: normal to inspection and full ROM Neuro: COMMON NORMALS: patient oriented x3, moves all extremities and no focal motor deficits Psych: COMMON NORMALS: mental status grossly normal, Normal thought process present and cooperative THOUGHT PROCESS: Normal thought process present Skin: COMMON NORMALS: no rashes or lesions noted and no wounds GENERAL SKIN EXAM: no rashes or lesions noted Course 2 Vital Signs: Vital signs: Vital Signs Temperature 98.5 F 05/01/25 15:55 Pulse Rate 91 05/01/25 18:30 Respiratory Rate 18 05/01/25 17:19 Blood Pressure 160/98 05/01/25 17:30 Pulse Oximetry 93 05/01/25 18:30 Oxygen Delivery Me thod Room Air 05/01/25 17:19 [facility] - General Adult Medical Decision Making Patient presents here with a foreign body sensation in throat is likely esophagitis. Differential did include epiglottitis soft tissue of her neck here is negative chest x-ray is normal as well. She is in no respiratory stress has no difficulty swallowing no signs of peritonsillar or retropharyngeal abscess. Blood work here is normal did go over all these findings with her did give her a dose of Decadron as well will give her follow-up for likely EGD she is to return if worsening she understands agrees to plan Medical Records I reviewed the patient's medical records. Lab Data I reviewed the patient's lab results. 05/01/25 17:14 05/01/25 17:14 Radiology Impressions Chest X-Ray 05/01/25 15:52 IMPRESSION: No acute airspace disease. Soft Tissue Neck X-Ray 05/01/25 16:32 IMPRESSION: 1. Multilevel degenerative changes. No acute bony findings. 2. Unremarkable soft tissues. Laboratory Results WBC 8.00 10^3/uL (3.29-11.43) 05/01/25 17:14 RBC 5.04 10^6/uL (3.85-5.65) 05/01/25 17:14 Hgb 14.30 g/dL (11.27-16.99) 05/01/25 17:14 Hct 44.8 % (36-47) 05/01/25 17:14 MCV 88.9 fl (85-98) 05/01/25 17:14 MCH 28.4 pg (27-33) 05/01/25 17:14 MCHC 31.9 g/dL (30-55) 05/01/25 17:14 RDW 13.8 % (12.1-15.1) 05/01/25 17:14 Plt Count 310 10^3/cmm (157-399) 05/01/25 17:14 MPV 9.6 fL (7.4-10.4) 05/01/25 17:14 Neut % (Auto) 78.4 % 05/01/25 17:14 Lymph % (Auto) 15.5 % 05/01/25 17:14 [place] % (Auto) 4.9 % 05/01/25 17:14 Eos % (Auto) 0.1 % 05/01/25 17:14 Baso % (Auto) 0.8 % 05/01/25 17:14 Neut # (Auto) 6.28 10^3/uL (1.8-7.7) 05/01/25 17:14 Lymph # (Auto) 1.2 10^3/uL (0.8-4.8) 05/01/25 17:14 [place] # (Auto) 0.4 10^3/uL (0.2-0.9) 05/01/25 17:14 Eos # (Auto) 0.0 10^3/uL (0.0-0.8) 05/01/25 17:14 Baso # (Auto) 0.1 10^3/uL (0.0-0.1) 05/01/25 17:14 Nucleated RBC % (auto) 0 % 05/01/25 17:14 Nucleated RBCs # 0.0 /100WBC 05/01/25 17:14 Sodium 140 mmol/L (136-145) 05/01/25 17:14 Potassium 4.1 mmol/L (3.5-5.1) 05/01/25 17:14 Chloride 102 mmol/L (98-107) 05/01/25 17:14 Carbon Dioxide 24 mmol/L (22-29) 05/01/25 17:14 Anion Gap 18.1 (5-19) 05/01/25 17:14 BUN 12 mg/dL (8-23) 05/01/25 17:14 Creatinine 0.9 mg/dL (0.5-0.9) 05/01/25 17:14 GFR Calculation Not Reportable 05/01/25 17:14 Glucose 115 mg/dL (65-115) 05/01/25 17:14 Calculated Osmolality 291 mOsm/kg (285-295) 05/01/25 17:14 Calcium 9.9 mg/dL (8.5-10.5) 05/01/25 17:14 Influenza A (PCR) Negative (Negative) 05/01/25 16:02 Influenza Type B (PCR) Negative (Negative) 05/01/25 16:02 RSV (PCR) Negative (Negative) 05/01/25 16:02 SARS-CoV-2 (PCR) Negative (Negative) 05/01/25 16:02 Group A Strep Rapid Negative (Negative) 05/01/25 16:30 All radiology interpretation(s) finalized by discharge EKG Data EKG 1: I personally reviewed and interpreted this EKG as follows: EKG interpretation date: 05/01/25 EKG interpretation time: 16:20 Interpretation: nsr hr [address] or t wave abnormalities qrs 102 qtc 394 Computer generated interpretation: Chest X-Ray 05/01/25 15:52 IMPRESSION: No acute airspace disease. Soft Tissue Neck X-Ray 05/01/25 16:32 IMPRESSION: 1. Multilevel degenerative changes. No acute bony findings. 2. Unremarkable soft tissues. Discharge Plan Discharge Patient Disposition: Home Clinical Impression: Sore throat Condition: Stable Prescriptions: No Action levothyroxine 100 mcg capsule 100 mcg PO DAILY azithromycin 250 mg tablet See Rx Instructions PO .COMPLEX Qty: 6 0RF Rx Instructions: For 250 mg dose pack: take 500 mg today (day 1), then 250 mg for 4 days (days 2-5) PO benzonatate 200 mg capsule 200 mg PO TID PRN (Reason: cough) Qty: 90 2RF fluconazole [Diflucan] 100 mg tablet 100 mg PO DAILY Qty: 30 2RF Rx Instructions: take one tab po qday x 3 then prn prednisone 20 mg tablet 20 mg PO DAILY Qty: 10 0RF tramadol [Ultram] 50 mg tablet 50 mg PO Q12H 30 Days Qty: 60 0RF prednisone 20 mg tablet See Rx Instructions PO BID Qty: 15 0RF Rx Instructions: 2 po day x 5 days, then 1 po qday x 5 days. then stop. amlodipine 10 mg tablet 10 mg PO DAILY Qty: 90 1RF duloxetine 30 mg capsule,delayed release(DR/EC) 30 mg PO DAILY Qty: 30 1RF hydralazine 50 mg tablet See Rx Instructions PO TID Qty: 90 0RF Rx Instructions: 1 po bid prn for systolic >150 or diastolic >90 orally three times daily; prednisone 10 mg tablet See Rx Instructions .ROUTE .COMPLEX Qty: 30 1RF Dose Instruction: TAKE ONE TABLET BY MOUTH DAILY Rx Instructions: TAKE ONE TABLET BY MOUTH DAILY prednisone 20 mg tablet 20 mg PO DAILY Qty: 30 0RF lisinopril 20 mg tablet See Rx Instructions .ROUTE .COMPLEX Qty: 180 3RF Dose Instruction: TAKE ONE TABLET BY MOUTH TWICE DAILY Rx Instructions: TAKE ONE TABLET BY MOUTH TWICE DAILY aspirin 325 mg tablet 325 mg PO DAILY Qty: 30 0RF Discharge Orders: Discharge ED (Routine); Ordered 05/01/25 Ordered By: Ekaterina Erwni Referrals: Chuck Burgess MD [Physician, General Surgery] - 4-7 days Sudhakar Toussaint MD [Primary Care Provider, Family Practice] - 4-7 days Discharge Diet: Advance as tolerated Discharge Activity: Resume usual activity Patient Instructions: Esophagitis (ED), Sore Throat - Adult Print Language: Vietnamese Coding Level of Care Code ED Merchandise Execution Leader for Jagdeep Bruce
--- NOTE | 2025-05-01 16:32 | XRR_ITS ---
PROCEDURE INFORMATION: Exam: XR Soft Tissue Neck Exam date and time: 05/01/2025 4:34 PM Age: 80 years old Clinical indication: Dyspnea / difficulty breathing; Additional info: SOB TECHNIQUE: Imaging protocol: Radiologic exam of the soft tissues of the neck. COMPARISON: CR (CHEST, ) 05/01/2025 4:19 PM FINDINGS: Airway: Normal. No abnormal narrowing. Soft tissues: Normal. Normal epiglottis. Bones/joints: No acute fracture or traumatic listhesis. Straightening of the cervical spine which may be related to muscle spasm. Severe multilevel degenerative disc disease, facet arthrosis and uncovertebral hypertrophy. XR/XR soft tissue neck [id number] IMPRESSION: 1. Multilevel degenerative changes. No acute bony findings. 2. Unremarkable soft tissues.
[2025-05-01] MEDS: lidocaine 2% viscous 15 ML, aluminum-mag hydrox-simethicon 30 ML, sucralfate oral liq 1 GM PO (16:33)
[2025-05-01 16:44] LABS: Rapid Strep A Test Negative (Negative)
[2025-05-01 16:53] LABS: Respiratory Syncytial Virus Ce NEGATIVE (Negative); SARS-CoV-2 PCR NEGATIVE (Negative)
[2025-05-01 17:00] VITALS: BP 175/82; PULSE 90; O2SAT 94
[2025-05-01 17:16] VITALS: PULSE 95; RESP 18; O2SAT 90
[2025-05-01 17:18] LABS: Hematocrit 44.8 % (36-47); Hemoglobin 14.30 g/dL (11.27-16.99); Mean Corpuscular HGB Conc 31.9 g/dL (30-55); Mean Corpuscular Hemoglobin 28.4 pg (27-33); Mean Corpuscular Volume 88.9 fl (85-98); Nucleated Red Blood Cells % 0 %; Platelet Count 310 10^3/cmm (157-399); Red Blood Count 5.04 10^6/uL (3.85-5.65); White Blood Count 8.00 10^3/uL (3.29-11.43)
[2025-05-01 17:19] VITALS: PULSE 101; RESP 18; O2SAT 94
[2025-05-01 17:30] VITALS: BP 160/98; PULSE 87; O2SAT 94
[2025-05-01 17:34] LABS: Anion Gap 18.1 (5-19); Blood Urea Nitrogen 12 mg/dL (8-23); Calcium 9.9 mg/dL (8.5-10.5); Carbon Dioxide 24 mmol/L (22-29); Chloride 102 mmol/L (98-107); Creatinine Clr Calc Pharmacy 51.3474; Glucose 115 mg/dL (65-115); Osmolality Calculated 291 mOsm/kg (285-295); Potassium 4.1 mmol/L (3.5-5.1); Sodium 140 mmol/L (136-145)
[2025-05-01 18:30] VITALS: PULSE 91; O2SAT 93
--- NOTE | 2025-05-02 08:05 | DCPLANNER ---
messaged gen surg for er f/u
== END 2025-05-01 18:30 | disposition home or self-care (01) ==
PROVIDERS: Emergency Provider Emergency Medicine; PCP Family Medicine
DX: J02.9 Acute pharyngitis, unspecified (principal); Z79.82 Long term (current) use of aspirin; Z11.52 Encounter for screening for COVID-19; I10 Essential (primary) hypertension
CPT/HCPCS: 36415; 70360; 71045; 80048; 85025; 87081; 87637; 87880; 93005; 94640; 96372; 99285; J1100; J9999

== ENCOUNTER 2025-06-16 09:47 | Outpatient (CLI) | payer MEDICARE, SELFPAY ==
--- NOTE | 2025-06-16 09:56 | CTR_ITS ---
PROCEDURE INFORMATION: Exam: CTA Chest With Contrast Exam date and time: 06/16/2025 10:54 AM Age: 80 years old Clinical indication: Pain and abnormal findings; Abnormal diagnostic tests; Angina pectoris; Elevated d-dimer, chest and abdominal pain with lightheadedness and nausea x 2-3 weeks; Additional info: Elevated d dimer, stat TECHNIQUE: Imaging protocol: Computed tomographic angiography of the chest with contrast. Exam focused on the arteries. 3D rendering (Not supervised by radiologist): MIP and/or 3D reconstructed images were created by the technologist. Radiation optimization: All CT scans at this facility use at least one of these dose optimization techniques: automated exposure control; mA and/or kV adjustment per patient size (includes targeted exams where dose is matched to clinical indication); or iterative reconstruction. Contrast material: OMNIPAQUE 350; Contrast volume: 100 ml; Contrast route: INTRAVENOUS (IV); COMPARISON: CR XR chest 1V portable [id number] 05/01/2025 4:19 PM RADIATION DOSE METRICS: Total DLP (mGy-cm): 407.2 FINDINGS: Pulmonary arteries: No central, segmental or proximal subsegmental pulmonary embolus. There are areas of diminished enhancement within the more peripheral subsegmental pulmonary arteries, notably in the right middle lobe but this is not convincing for pulmonary embolus. This is favored as relating to mild respiratory motion. Aorta: Unremarkable. No aortic aneurysm. No aortic dissection. Other arteries: Mild atherosclerotic disease is evident. Lungs: Unremarkable. No consolidation. No masses. Pleural spaces: Unremarkable. No pneumothorax. No pleural effusion. Heart: Unremarkable. No cardiomegaly. No pericardial effusion. Lymph nodes: Calcified lymph nodes in the chest, suggest previous granulomatous disease. Liver: Mild hepatic steatosis is suspected. Gallbladder and biliary ducts: Prior cholecystectomy. No suspicious biliary dilatation. Spleen: Incidental splenic granulomata are noted. Bones/joints: Postsurgical changes left shoulder Soft tissues: Unremarkable. CT/CT angio chest PE protcl [id number] IMPRESSION: 1. No central, segmental or proximal subsegmental pulmonary embolus. 2. Calcified lymph nodes in the chest, nonspecific but which can be seen with previous granulomatous disease.
[2025-06-16] MEDS: iohexol 350 mg/mL 500 mL Btl (per mL) IV (11:03)
== END 2025-06-16 09:48 | disposition home or self-care (01) ==
LOC: RAD 09:49
PROVIDERS: PCP Family Medicine; Visit Provider Family Medicine
DX: R79.89 Other specified abnormal findings of blood chemistry (principal); I89.8 Other specified noninfective disorders of lymphatic vessels and lymph nodes
CPT/HCPCS: 71275

== ENCOUNTER 2025-06-17 06:11 | Outpatient (CLI) | payer MEDICARE, SELFPAY ==
--- NOTE | 2025-06-17 | ECG_ITS ---
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 Interpretive Statements Procedure: A total of 0.4 mg of Lexiscan was infused over 20 seconds. The stress phase was continued for a total of 5 minutes. Sestamibi was injected 20 seconds after the Lexiscan infusion. Findings: The patient's baseline blood pressure was 143/77 mmHg with a heart rate of 89 bpm. There was no significant change in the blood pressure after Lexiscan injection. The heart rate did increase to a maximum of 113 bpm which is a normal response to the Lexiscan. Baseline EKG showed normal sinus rhythm with frequent premature ventricular contractions, poor R wave progression minimal ST depression in the inferolateral leads. There was mild increase in ST depression with the stress test but is indeterminate for ischemia due to the baseline abnormality in the ST segments. Conclusion: 1. Indeterminate stress EKG for ischemia due to baseline ST depression 2. No Lexiscan induced chest pain 3. Frequent premature ventricular contractions at rest and during stress test. 4. Nuclear myocardial perfusion scan pending; see separate report. Electronically Signed On 06-17-2025 18:33:56 VARNISH SUPERVISOR by Gil Oh M.D. [email or web address]
[2025-06-17 06:22] VITALS: BMI 37.8
--- NOTE | 2025-06-17 06:23 | NMCV_ITS ---
NM donald perf SPECT r/s* [id number] Shelli Raza Age: 80 Gender: F : 1945 Exam Date: 06/17/2025 07:14 Ordering Phys: Sudhakar Toussaint MD Technologist: JOSHUA Blake Exam Location: [facility] Indications: CP STRESS TEST Please see separate stress test report in [facility] for full findings IMAGE PROTOCOL Rest/Stress 1 Lexiscan Day Radiopharmaceutical Dose (mCi) Administration Site Administered by Rest: Tc-99m 10.5 IV Rashmi Kaplan, GIRLS [employer]IS [employer]ACH Sestamibi Stress:Tc-99m 32.4 IV Rashmigeorgi De La Cruzgle, GIRLS TENNIS COACH Sestamibi Rest: 17-Jun-2025 60 Discovery 630 Stress: 17-Jun-2025 30 Discovery 630 0.4mg Lexiscan. Images obtained in supine and prone position. SPECT RESULTS Technical Quality: Good Raw Data Analysis: Normal Image Corrections: No attenuation or motion correction applied Summed Stress Score: 4 Summed Rest Score: 0 Summed Difference Score: 4 PERFUSION FINDINGS There is a medium sized area of mildly decreased tracer counts in the anteroseptum that improves on the resting images. There is also small area of moderately reduced tracer counts in the apical lateral wall segment that improves on the resting images. FUNCTIONAL RESULTS (calculated via Gated SPECT) Stress Image LV EF (%): 87 Stress EDV (mL):61 TID: 0.83 Stress ESV (mL):8 FUNCTIONAL FINDINGS: There is normal left ventricular systolic function. Ejection fraction greater than 75% IMPRESSIONS 1. Myocardial perfusion imaging is abnormal with a medium sized area of mild ischemia in the anterior septum and a small area of inducible ischemia in the apical lateral wall segment. 2. Normal left ventricular systolic function, EF greater than 75%. Gil Oh MD, FACC (Electronically Signed) Final Date: 17 June 2025 16:31 S
[2025-06-17] MEDS: ondansetron 2 mg/ML SDV 2 mL 4 MG IVP (07:54)
[2025-06-17 08:45] VITALS: BP 139/72; PULSE 102
== END 2025-06-17 06:12 | disposition home or self-care (01) ==
LOC: CDL 06:12
PROVIDERS: PCP Family Medicine; Visit Provider Family Medicine
DX: R07.2 Precordial pain (principal); I25.10 Atherosclerotic heart disease of native coronary artery without angina pectoris; R94.39 Abnormal result of other cardiovascular function study
CPT/HCPCS: 36415; 78452; 93017; 96374; 96375; A9500; J2405; J2785

== ENCOUNTER → 2025-07-05 13:54 | Outpatient (BNVA) | payer MEDICARE, SELFPAY | PROVIDERS: PCP Family Medicine; Visit Provider Internal Medicine Cardiovascular Disease | DX: R94.39 Abnormal result of other cardiovascular function study (principal); I10 Essential (primary) hypertension; I49.3 Ventricular premature depolarization; R07.9 Chest pain, unspecified; Z82.49 Family history of ischemic heart disease and other diseases of the circulatory system; R58 Hemorrhage, not elsewhere classified | CPT/HCPCS: 80048; 85025; 85610; 99204 ==